=== PATIENT | female | born 1950 | race Caucasian/White ===

== ENCOUNTER 2024-08-10 12:43 | Inpatient (IN) | payer MEDICARE, OTHER ==
[2024-08-10] MEDS: Sodium Chloride 0.45% 500ML 500 ML IV ONE (13:23)
[2024-08-10 13:34] LABS: BASOPHIL % 0.1 % (0.1-1.2); Basophil (Absolute #) 0.02 x10^3/uL (0.01-0.08); Eosinophil (Absolute #) 0 x10^3/uL (0.04-0.36); Hematocrit 32.9 % (34.1-44.9); Hemoglobin 10.5 g/dL (11.2-15.7); IMMATURE GRAN # 0.12 x10^3u/L (0.001-0.031); IMMATURE GRAN % 0.7 % (0.001-0.429); Lymphocyte (Absolute #) 0.58 x10^3/uL (1.18-3.74); Lymphocytes % 3.5 % (19.3-51.7); Mean Cell Volume 89.2 fL (79.4-94.8); Mean Corpuscular Hemoglobin 28.5 pg (25.6-32.2); Mean Corpuscular Hgb Concent. 31.9 g/dL (32.2-35.5); Mean Platelet Volume 9.2 fL (9.4-12.3); Monocyte (Absolute #) 0.45 x10^3/uL (0.24-0.86); Monocytes % 2.7 % (4.7-12.5); Platelet Count 299 x10^3/uL (182-369); Red Blood Count 3.69 x10^6/uL (3.93-5.22); White Blood Count 16.6 x10^3/uL (3.98-10.04)
--- NOTE | 2024-08-10 13:44 | XRAY ---
Indication: Hypotension. Presyncope. Comparison: None Portable chest demonstrates minimal left midlung subsegmental atelectasis/scarring and tiny right mid lung calcified granuloma. Remaining heart and lungs normal. Bony thorax intact. No acute findings.
[2024-08-10 13:58] LABS: ALBUMIN 1.8 g/dL (3.5-5.0); ANION GAP 13.4 MEQ/L (5-15); BILIRUBIN,TOTAL 0.2 mg/dL (0.2-1.3); Creatinine 1 0.81 mg/dL (0.52-1.04); EST GLOMERULAR FILTRATION RATE 75.7 ML/MIN; MAGNESIUM 1.3 mg/dL (1.6-2.3); Potassium 4.4 mmol/L (3.5-5.1); Total Protein 4.3 g/dL (6.3-8.2)
--- NOTE | 2024-08-10 14:22 | ERPHSYRPT ---
- History of Present Illness Time Seen by Provider: 08/10/24 12:57 Source: patient, EMS, [facility] records Exam Limitations: no limitations Patient Subjective Stated Complaint: C/O near syncope today while resting in bed at [facility]. Triage Nursing Assessment: Patient arrived by ambulance. NO SOB. She is alert and oriented. Pitting edema present to BLE. RUE noted to have some non-pitting edema.Dressing noted to coccyx area; patient reports this is a known ulcer [facility] at the [facility]. Patient is pale. Physician History: 74-year-old female with history of diabetes mellitus,, colitis for which patient was initially seen here at [facility] and later on at [facility] and is scheduled to have colonoscopy and CT angiogram abdomen pelvis, questionable ulcerative colitis still having diarrhea 2-3 times a day currently at [facility] is brought in the ER patient was lying in the bed and started to feel lightheaded and near syncope with drop of blood pres sure in 70s, heart rate in low 50s which started to improve but still blood pressure is low. 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 Has bilateral 3+ pitting edema in both legs which is progressively worsening. Patient has almost 30 pounds weight loss in the last 3 months since her diarrhea and colitis symptoms started. No fever or chills reported. Also have a coccyx wound which seems to be healing and no discharge, currently under care of wound management. Patient is awake alert and oriented on presentation and not in any distress. Allergies/Adverse Reactions: sulfamethoxazole [From Bactrim] Allergy (Verified 08/10/24 12:47) trimethoprim [From Bactrim] Allergy (Verified 08/10/24 12:47) meperidine HCl [From Demerol] Adverse Reaction (Mild, Verified 08/10/24 12:47) Lightheadedness Home Medications: Fenofibrate [Lipofen] 145 mg PO DAILY 09/24/23 [History] Glimepiride 2 mg [Amaryl 2 MG] 2 mg PO DAILY 09/24/23 [History] Metformin HCl [Metformin ER Gastric] 1,000 mg PO BID 09/24/23 [History] Duloxetine HCl 30 mg [Cymbalta 30 MG Capsule] 1 tablet PO DAILY 05/23/24 [History] ALPRAZolam 0.25 MG [xanAX 0.25 MG] 0.25 mg PO Q4H PRN PRN 08/10/24 [History] Apixaban [Eliquis] 5 mg PO BID 08/10/24 [History] Ascorbic Acid 500 mg [Vitamin C 500 MG] 500 mg PO BID 08/10/24 [History] Bismuth Subsalicylate [Pepto-Bismol] 524 mg PO Q3H/PRN PRN 08/10/24 [History] Cholecalciferol (Vitamin D3) [Vitamin D] 1,000 unit PO DAILY 08/10/24 [History] Cholestyramine Light 4 gm [QUESTRAN Light 4 GM Packet] 4 gm PO DAILY 08/10/24 [History] Clotrimazole [Clotrimazole AF] See Rx Instructions .ROUTE .COMPLEX 08/10/24 [History] Dextrose [Glucose] 16 g PO CLARIFY 08/10/24 [History] Dicyclomine HCl 20 mg [Bentyl 20 mg] 20 mg PO QID 08/10/24 [History] Diphenoxylate HCl/Atropine [Lomotil 2.5-0.025 mg Tablet] 2 tab PO BID 08/10/24 [History] Furosemide 20 mg [Lasix 20 mg] 20 mg PO DAILY 08/10/24 [History] Insulin Lispro See Rx Instructions .ROUTE .COMPLEX 08/10/24 [History] L.acidoph,Paracasei, B.lactis [Probiotic] 1 cap PO DAILY 08/10/24 [History] Omeprazole 20 mg PO DAILY 08/10/24 [History] Ondansetron ODT 4 MG [Zofran Odt 4 mg] 4 mg PO Q4H PRN PRN 08/10/24 [History] Oxycodone HCl 5 mg PO Q4H PRN PRN 08/10/24 [History] Potassium Chloride Tab* [Klor Con] 10 meq PO DAILY 08/10/24 [History] Prednisone 20 mg [Deltasone 20 mg] 20 mg PO DAILY 08/10/24 [History] Psyllium Packet [Metamucil PACKET] 1 pack PO DAILY 08/10/24 [History] Hx Tetanus, Diphtheria Vaccination/Date Given: Yes Hx Influenza Vaccination/Date Given: No Hx Pneumococcal Vaccination/Date Given: No Immunizations Up to Date: Yes Travel Risk - International Travel Have you traveled outside of the country in past 3 weeks: No - Emerging Infectious Disease Are you exhibiting symptoms associated with any current EIDs: Yes Symptoms: Diarrhea Comment: Dx: Collitis. [facility] reports negative for C-diff - Review of Systems Constitutional: Fatigue, Weakness Eyes: No Symptoms Ears, Nose, & Throat: No Symptoms Respiratory: No Symptoms Cardiac: No Symptoms Abdominal/Gastrointestinal: Diarrhea Genitourinary Symptoms: No Symptoms Musculoskeletal: Arthralgias Skin: Skin Lesions Neurological: Dizziness Immunological/Allergic: No Symptoms - Past Medical History Pertinent Past Medical History: Yes Neurological History: No Pertinent History ENT History: No Pertinent History Cardiac History: High Cholesterol Respiratory History: No Pertinent History Endocrine Medical History: Diabetes Type II Musculoskeletal History: No Pertinent History GI Medical History: Colitis, Polyps History: No Pertinent History Psycho-Social History: Anxiety, Depression Female Reproductive Disorders: No Pertinent History Other Medical History: DVT to LUE, thrombophilia, anemia, hyperlipidemia, hypo- osmolality and hyponatremia - Past Surgical History Past Surgical History: Yes Neuro Surgical History: No Pertinent History Cardiac: No Pertinent History Respiratory: No Pertinent History Gastrointestinal: No Pertinent History Genitourinary: No Pertinent History Musculoskeletal: Orthopedic Surgery Female Surgical History: Hysterectomy Other Surgical History: knee surgery for shattered knee cap - Social History Smoking Status: Former smoker How long have you smoked: 40 Exposure to second hand smoke: No Drug Use: none - Social Determinants of Health Will the patient participate in the screening: Yes Do you worry about a steady place to live?: No Do you have any problems with any of the following?: No known problems In the past 12 months,have you had to go without utilities?: No Transportation Issues: No Has anyone in your support network made you feel unsafe?: No Have you or anyone in your house had to go without enough: No Comment: Currently resides at [facility] - Nursing Vital Signs Nursing Vital Signs: Initial Vital Signs Temperature 96.9 F 08/10/24 12:49 Pulse Rate 112 H 08/10/24 12:49 Respiratory Rate 12 08/10/24 12:49 Blood Pressure 95/68 08/10/24 12:49 O2 Sat by Pulse Oximetry 100 08/10/24 12:49 Pain Scale Pain Intensity 0 - Physical Exam General Appearance: no apparent distress, alert Eye Exam: PERRL/EOMI Ears, Nose, Throat Exam: normal ENT inspection Neck Exam: normal inspection, supple, full range of motion Respiratory Exam: normal breath sounds, lungs clear Cardiovascular Exam: normal heart sounds, tachycardia Gastrointestinal/Abdomen Exam: soft, normal bowel sounds, No tenderness Back Exam: normal inspection Extremity Exam: normal inspection, normal range of motion Neurologic Exam: alert, oriented x 3, cooperative Skin Exam: normal color SpO2 Interpretation: normal SpO2: 98 O2 Delivery: Room Air - Course EKG Interpreted by Me: RATE (105), Sinus Tach, NORMAL AXIS, NORMAL INTERVALS, Non-specific ST Changes Ordered Tests: Active Orders 24 hr Category Date Time Status EKG-ER Only STAT Care 08/10/24 12:57 Active IV Insertion STAT Care 08/10/24 12:57 Active CHEST 1 VIEW (PORTABLE) Stat Exams 08/10/24 12:57 Completed CTA ABD/PEL W AND/OR W/O CONTR [CT] Stat Exams 08/10/24 14:27 Completed BLOOD CULTURE Stat Lab 08/10/24 13:28 Received CBC W DIFF Stat Lab 08/10/24 13:20 Completed CMP Stat Lab 08/10/24 13:20 Completed CULTURE,URINE Stat Lab 08/10/24 14:24 Received Lactic Acid Stat Lab 08/10/24 13:20 Completed Lactic Acid Stat Lab 08/10/24 15:28 Completed MAGNESIUM Stat Lab 08/10/24 13:20 Completed NT PRO BNPII Stat Lab 08/10/24 13:20 Completed TROPONIN Q4H Lab 08/10/24 13:20 Completed TROPONIN Q4H Lab 08/10/24 17:14 Received TROPONIN Q4H Lab 08/10/24 21:00 Ordered UA W/RFX UR CULTURE Stat Lab 08/10/24 14:24 Completed Transfer Order Routine Transfer 08/10/24 Ordered Medication Summary Discontinued Medications Generic Name Dose Route Start Last Admin Trade Name Freq PRN Reason Stop Dose Admin Sodium Chloride 500 mls @ 500 mls/hr 08/10/24 12:58 08/10/24 13:23 Sodium Chloride 0.45% 500ml IV 08/10/24 13:57 Not Given .Q1H ONE Sodium Chloride 1,000 mls @ 999 mls/hr 08/10/24 14:10 08/10/24 17:12 Sodium Chloride 0.9% 1000 Ml IV 08/10/24 15:10 Not Given .Q1H1M STA Piperacillin Sod/Tazobactam 100 mls @ 200 mls/hr 08/10/24 14:12 08/10/24 15:38 Sod 3.375 gm/ Sodium Chloride IV 08/10/24 14:41 200 mls/hr STAT ONE Administration Sodium Chloride 1,000 mls @ 999 mls/hr 08/10/24 14:12 08/10/24 16:44 Sodium Chloride 0.9% 1000 Ml IV 08/10/24 15:12 Infused .Q1H1M STA Infusion Sodium Chloride Confirm 08/10/24 15:36 Sodium Chloride 0.9% 1000 Ml Administered 08/10/24 15:37 Dose 1,000 mls @ ud .ROUTE .STK-MED ONE Sodium Chloride Confirm 08/10/24 15:37 Sodium Chloride 100ml Mini-Bag Plus Administered 08/10/24 15:38 Dose 100 mls @ ud IV .STK-MED ONE Lidocaine HCl Confirm 08/10/24 15:06 Lidocaine - Mpf 2% 5 Ml Vial Administered 08/10/24 15:07 Dose 5 ml .ROUTE .STK-MED ONE Ondansetron HCl 4 mg 08/10/24 15:23 08/10/24 15:39 Ondansetron Hcl 4 Mg/2 Ml Vial IV 08/10/24 15:24 4 mg STAT ONE Administration Ondansetron HCl Confirm 08/10/24 15:35 Ondansetron Hcl 4 Mg/2 Ml Vial Administered 08/10/24 15:36 Dose 4 mg .ROUTE .STK-MED ONE Piperacillin Sod/Tazobactam Sod Confirm 08/10/24 15:36 Piperacillin/Tazobactam Sodium 3.375 Gm Vial Administered 08/10/24 15:37 Dose 3.375 gm IV .STK-MED ONE Lab/Rad Data: Laboratory Result Diagrams 08/10/24 13:20 08/10/24 13:20 Laboratory Results 01/30/25 01/30/25 01/30/25 Range/Units 15:28 14:24 13:20 WBC (3.98-10.04) x10^3/uL RBC (3.93-5.22) x10^6/uL Hgb (11.2-15.7) g/dL Hct (34.1-44.9) % MCV (79.4-94.8) fL MCH (25.6-32.2) pg MCHC (32.2-35.5) g/dL RDW (11.7-14.4) % Plt Count (182-369) x10^3/uL MPV (9.4-12.3) fL Gran % (34.0-71.1) % Immature Gran % (Auto) (0.001-0.429) % Nucleat RBC Rel Count (0.00-0.2) % Eos # (Auto) (0.04-0.36) x10^3/uL Immature Gran # (Auto) (0.001-0.031) x10^3u/L Absolute Lymphs (auto) (1.18-3.74) x10^3/uL Absolute Monos (auto) (0.24-0.86) x10^3/uL Absolute Nucleated RBC (0.00-0.012) x10^3u/L Lymphocytes % (19.3-51.7) % Monocytes % (4.7-12.5) % Eosinophils % (0.7-5.8) % Basophils % (0.1-1.2) % Absolute Granulocytes (1.56-6.13) x10^3/uL Basophils # (0.01-0.08) x10^3/uL Sodium (135-145) mmol/L Potassium (3.5-5.1) mmol/L Chloride (98-107) mmol/L Carbon Dioxide (22-30) mmol/L Anion Gap (5-15) MEQ/L BUN (7-17) mg/dL Creatinine (0.52-1.04) mg/dL Estimated GFR ML/MIN Glucose (74-106) mg/dL Lactic Acid 2.6 H (0.4-2.0) Calcium (8.4-10.2) mg/dL Magnesium (1.6-2.3) mg/dL Total Bilirubin (0.2-1.3) mg/dL AST (14-36) U/L ALT (0-35) U/L Alkaline Phosphatase (38-126) U/L Troponin I < 0.012 (0.000-0.033) ng/mL NT-Pro-B Natriuret Pep (<300) pg/mL Serum Total Protein (6.3-8.2) g/dL Albumin (3.5-5.0) g/dL Urine Color Yellow (Yellow) Urine Appearance Cloudy A (Clear) Urine pH 5.0 (4.6-8.0) Ur Specific [place] 1.020 (1.005-1.030) Urine Protein Trace A (Negative) Urine Glucose (UA) Negative (Negative) mg/dL Urine Ketones Trace A (Negative) Urine Blood Negative (Negative) Urine Nitrite Negative (Negative) Urine Bilirubin Negative (Negative) Urine Urobilinogen 0.2 (0.2) mg/dL Ur Leukocyte Esterase Trace A (Negative) U Hyaline Cast (Auto) 11-20 (0-2) /LPF Urine Microscopic RBC 0-2 (0-5) /HPF Urine Microscopic WBC 3-5 (0-5) /HPF Ur Epithelial Cells Rare (None Seen) /HPF Urine Bacteria Many A (None Seen) /HPF Urine Culture Reflexed YES (NO) Slides for Path Review 08/10/24 08/10/24 08/10/24 Range/Units 13:20 13:20 13:20 WBC 16.6 H (3.98-10.04) x10^3/uL RBC 3.69 L (3.93-5.22) x10^6/uL Hgb 10.5 L (11.2-15.7) g/dL Hct 32.9 L (34.1-44.9) % MCV 89.2 (79.4-94.8) fL MCH 28.5 (25.6-32.2) pg MCHC 31.9 L (32.2-35.5) g/dL RDW 18.0 H (11.7-14.4) % Plt Count 299 (182-369) x10^3/uL MPV 9.2 L (9.4-12.3) fL Gran % 93.0 H (34.0-71.1) % Immature Gran % (Auto) 0.7 H (0.001-0.429) % Nucleat RBC Rel Count 0.0 (0.00-0.2) % Eos # (Auto) 0 L (0.04-0.36) x10^3/uL Immature Gran # (Auto) 0.12 H (0.001-0.031) x10^3u/L Absolute Lymphs (auto) 0.58 L (1.18-3.74) x10^3/uL Absolute Monos (auto) 0.45 (0.24-0.86) x10^3/uL Absolute Nucleated RBC 0.00 (0.00-0.012) x10^3u/L Lymphocytes % 3.5 L (19.3-51.7) % Monocytes % 2.7 L (4.7-12.5) % Eosinophils % 0.0 L (0.7-5.8) % Basophils % 0.1 (0.1-1.2) % Absolute Granulocytes 15.40 H (1.56-6.13) x10^3/uL Basophils # 0.02 (0.01-0.08) x10^3/uL Sodium 128 L (135-145) mmol/L Potassium 4.4 (3.5-5.1) mmol/L Chloride 99 (98-107) mmol/L Carbon Dioxide 20 L (22-30) mmol/L Anion Gap 13.4 (5-15) MEQ/L BUN 37 H (7-17) mg/dL Creatinine 0.81 (0.52-1.04) mg/dL Estimated GFR 75.7 ML/MIN Glucose 281 H (74-106) mg/dL Lactic Acid 5.5 H (0.4-2.0) Calcium 7.0 L (8.4-10.2) mg/dL Magnesium 1.3 L (1.6-2.3) mg/dL Total Bilirubin 0.20 (0.2-1.3) mg/dL AST 22 (14-36) U/L ALT 21 (0-35) U/L Alkaline Phosphatase 169 H (38-126) U/L Troponin I (0.000-0.033) ng/mL NT-Pro-B Natriuret Pep 672 (<300) pg/mL Serum Total Protein 4.3 L (6.3-8.2) g/dL Albumin 1.8 L (3.5-5.0) g/dL Urine Color (Yellow) Urine Appearance (Clear) Urine pH (4.6-8.0) Ur Specific [place] (1.005-1.030) Urine Protein (Negative) Urine Glucose (UA) (Negative) mg/dL Urine Ketones (Negative) Urine Blood (Negative) Urine Nitrite (Negative) Urine Bilirubin (Negative) Urine Urobilinogen (0.2) mg/dL Ur Leukocyte Esterase (Negative) U Hyaline Cast (Auto) (0-2) /LPF Urine Microscopic RBC (0-5) /HPF Urine Microscopic WBC (0-5) /HPF Ur Epithelial Cells (None Seen) /HPF Urine Bacteria (None Seen) /HPF Urine Culture Reflexed (NO) Slides for Path Review YES - Progress Progress: improved Progress Note: 08/10/24 17:47 74[facility] with multiple medical problems is evaluated in the ER for lightheadedness with near syncopal episode prior to arrival causing hypotension, bradycardia and hypoxia. Patient tachycardia and hypoxia improved prior to arrival, blood pressure on the softer side on presentation. She is given fluids with improvement in blood pressure and low 100s. Patient has diffuse edema bilaterally lower extremities. Broad workup is obtained showing white count of 16, lactate of 5.5 which improved after fluids to 2.6, sodium of 128 and low albumin with a normal tr oponin and BNP only in 600s. I believe low albumin is the reason for her edema in the dependent area. Patient has a wound on the coccyx area which seems to be well-healing and do not see any sloughing or signs of cellulitis around. No definitive UTI. Chest x-ray is negative for any acute cardiopulmonary findings. Patient has his outpatient order for CTA angiogram abdomen pelvis from her gastroenterology [place] as patient has this diarrhea going on for quite some time. I have obtained CTA which showed no definite obstruction/stenosis but did have diffuse sigmoid colitis which probably is the source of her sepsis, patient is given a dose of Zosyn as well. I have shared the results of workup with patient and family and recommended admission and they would prefer to stay here if we can. I have discussed with Dr. Sweeney who has reviewed her chart and patient is being admitted. Discussed with : David Will see patient in: hospital (observation) Counseled pt/family regarding: lab results, diagnosis, rad results Medical Desision Making - Independent Historian Additional History obtained from: Family, Relative/friend, Penitentiary nurse, Radiologic Technologist/EMT - External Record(s) Reviewed Records reviewed as a part of evaluation & management: Inpatient, Discharge Summary, [facility] - Discussion of managment Care discussed with:: hospitalist Reviewed:: Test results Agreed on:: Treatment plan, place in obs Will see patient: in hospital - Diagnostic Testing Diagnostic test were ordered, analyzed, and reviewed by me: Yes Radiological Interpretation: Reviewed by me - Risk of complications The pt has a mod risk of morbidity or mortality based on: Need for prescription drug management The pt has a high risk of morbidity or mortality based on: Decision regarding hospitilization or escalation of hosp level of care - Departure Departure Disposition: Observation Clinical Impression: Colitis, Hypomagnesemia, Sepsis, Hyponatremia Condition: Stable Critical Care Time: No Referrals: KAITLYN MCKEON OF [Primary Care Provider] - Follow up/PCP as directed
[2024-08-10 14:36] LABS: Slide Review 1 YES
[2024-08-10] MEDS ORDERED: Xylocaine-Mpf 2% 5 Ml Vial ONE (15:06)
[2024-08-10] MEDS ORDERED: Zofran 4 MG/2 ML VIAL ONE (15:35)
[2024-08-10] MEDS ORDERED: PIPERACILLIN/TAZOBACTAM IV ONE (15:36)
[2024-08-10] MEDS ORDERED: Sodium Chloride 0.9% 1000 ML 1,000 ML ONE (15:36)
[2024-08-10] MEDS ORDERED: Sodium Chloride 100ML MINI-BAG PLUS 100 ML IV ONE (15:37)
[2024-08-10] MEDS: PIPERACILLIN/TAZOBACTAM 3.375 GM in Sodium Chloride 100ML MINI-BAG PLUS 100 ML IV ONE (15:38)
[2024-08-10] MEDS: Zofran 4 MG/2 ML VIAL IV ONE (15:39)
[2024-08-10] MEDS: Sodium Chloride 0.9% 1000 ML 1,000 ML IV STA ×2 (15:39→17:12)
[2024-08-10 16:31] LABS: Appearance Cloudy (Clear); Bacteria Many /HPF (None Seen); Bilirubin Negative (Negative); Blood Negative (Negative); Epithelial Cells Rare /HPF (None Seen); Glucose, Urine Negative (Negative); Ketones Trace (Negative); Leukocyte Esterase Trace (Negative); Nitrite Negative (Negative); Protein,Urine Dip Trace (Negative); Urobilinogen 0.2 mg/dL (0.2)
[2024-08-10 16:32] LABS: RBC 0-2 /HPF (0-5)
--- NOTE | 2024-08-10 17:11 | XRAY ---
Indication: Colitis. Conventional contrast enhanced CTA abdomen/pelvis performed using 80 cc Isovue 370 contrast. 2-D sagittal and coronal reformatted images obtained. Additional 3-D reformatted images obtained using separate workstation. Comparison: None Abdominal aorta demonstrates minimal distal arteriosclerotic calcifications. Negative for aneurysm/dissection. Normal CTA appearance to celiac, superior mesenteric, and inferior mesenteric arteries. A single widely patent renal artery supplies each kidney. Iliac vessels demonstrates minimal arteriosclerotic calcifications in the right common iliac and both internal iliac arteries. No critical stenosis, obstruction, or AV malformation. Lung bases are clear with incidental small right lower lobe calcific granuloma. Heart not enlarged. Noncontrasted stomach and bowel loops appear nonobstructed with normal appendix. Mild fecal debris predominantly in the ascending and transverse colon. Diffuse scattered sigmoid diverticulosis with diffuse circumferential wall thickening and mild pericolonic stranding favoring diverticulitis. No free fluid/air. Incidental diffuse fatty liver, 2 cm right upper renal cyst, and a few splenic calcified granulomas. Remaining liver, gallbladder, pancreas, spleen, adrenal glands, kidneys, ureters, and bladder are unremarkable. No pathologic retroperitoneal lymphadenopathy. Osseous structures intact with osteopenia and minimal/mild degenerative changes throughout thoracolumbar spine. Incidental small superior L4 Schmorl node. Impression: 1. Minimally arteriosclerotic distal abdominal aorta and lesser degree iliac arteries as detailed. Remaining CTA abdomen/pelvis with contrast exam is negative. 2. Incidental diffuse noncomplicating sigmoid diverticulitis, fatty liver, right renal cyst, chronic bony findings, and old granulomatous disease.
[2024-08-10] MEDS: Magnesium 1 Gm / 100 Ml D5W*** 100 ML IV SCH (17:50)
[2024-08-10] MEDS ORDERED: Pepto-Bismol PO PRN (19:27)
[2024-08-10] MEDS ORDERED: Dex4 Glucose 4 GM TABLET PO PRN (19:30)
--- NOTE | 2024-08-10 19:50 | PCM.HP ---
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 The patient has had bilateral 3+ pitting edema in both legs which is progressively worsening. Patient has almost 30 pounds weight loss in the last 3 months since her diarrhea and colitis symptoms started. She denied fever or chills. The patient also has a coccyx wound which seems to be healing and with no discharge, currently under care of wound management at her facility. In the ED, the patient received IV fluids with an improvement in her BP. Workup demonstrated leukocytosis, hypmagnesemia, a lactic acidosis, and colitis on CT scan. IV antibiotics were administered. She states that her diarrhea is overall improved over the past several weeks, but is persistent. The plan is for repeat colonoscopy with Dr. Virginia Goddard next week. The recommended CTA abdomen was already done in the ED. - Review of Systems Constitutional: Fatigue Eyes: No Symptoms Ears, Nose, & Throat: No Symptoms Respiratory: No Symptoms Cardiac: Edema Abdominal/Gastrointestinal: Abdominal Pain, Diarrhea Genitourinary Symptoms: No Symptoms Musculoskeletal: No Symptoms Skin: Decubiti Neurological: Dizziness Psychological: No Symptoms Endocrine: No Symptoms Hematologic/Lymphatic: No Symptoms Immunological/Allergic: No Symptoms Medications & Allergies Home Medications: Home Medication List Fenofibrate [Lipofen] 145 mg PO DAILY 09/24/23 [History Confirmed 08/10/24] Glimepiride 2 mg [Amaryl 2 MG] 2 mg PO DAILY 09/24/23 [History Confirmed 08/10/24] Metformin HCl [Metformin ER Gastric] 1,000 mg PO BID 09/24/23 [History Confirmed 08/10/24] Duloxetine HCl 30 mg [Cymbalta 30 MG Capsule] 1 tablet PO DAILY 05/23/24 [History Confirmed 08/10/24] Ferrous Sulfate 325 mg [Feosol 325 mg] 325 mg PO DAILY tablet 06/02/24 [Rx Confirmed 08/10/24] Acetaminophen 325 mg [Tylenol 325 mg] 650 mg PO Q4H PRN PRN tablet 06/16/24 [Rx Confirmed 08/10/24] ALPRAZolam 0.25 MG [xanAX 0.25 MG] 0.25 mg PO Q4H PRN PRN 08/10/24 [History Confirmed 08/10/24] Apixaban [Eliquis] 5 mg PO BID 08/10/24 [History Confirmed 08/10/24] Ascorbic Acid 500 mg [Vitamin C 500 MG] 500 mg PO BID 08/10/24 [History Co nfirmed 08/10/24] Bismuth Subsalicylate [Pepto-Bismol] 524 mg PO Q3H/PRN PRN 08/10/24 [History Confirmed 08/10/24] Cholecalciferol (Vitamin D3) [Vitamin D] 1,000 unit PO DAILY 08/10/24 [His tory Confirmed 08/10/24] Cholestyramine Light 4 gm [QUESTRAN Light 4 GM Packet] 4 gm PO DAILY 08/10/24 [History Confirmed 08/10/24] Clotrimazole [Clotrimazole AF] See Rx Instructions .ROUTE .COMPLEX 08/10/24 [History Confirmed 08/10/24] Dextrose [Glucose] 16 g PO CLARIFY 08/10/24 [History Confirmed 08/10/24] Dicyclomine HCl 20 mg [Bentyl 20 mg] 20 mg PO QID 08/10/24 [History Confirmed 08/10/24] Diphenoxylate HCl/Atropine [Lomotil 2.5-0.025 mg Tablet] 2 tab PO BID 08/10/24 [History Confirmed 08/10/24] Furosemide 20 mg [Lasix 20 mg] 20 mg PO DAILY 08/10/24 [History Confirmed 08/10/24] Insulin Lispro See Rx Instructions .ROUTE .COMPLEX 08/10/24 [History Confirmed 08/10/24] L.acidoph,Paracasei, B.lactis [Probiotic] 1 cap PO DAILY 08/10/24 [History Confirmed 08/10/24] Omeprazole 20 mg PO DAILY 08/10/24 [History Confirmed 08/10/24] Ondansetron ODT 4 MG [Zofran Odt 4 mg] 4 mg PO Q4H PRN PRN 08/10/24 [History Confirmed 08/10/24] Oxycodone HCl 5 mg PO Q4H PRN PRN 08/10/24 [History Confirmed 08/10/24] Potassium Chloride Tab* [Klor Con] 10 meq PO DAILY 08/10/24 [History Confirmed 08/10/24] Prednisone 20 mg [Deltasone 20 mg] 20 mg PO DAILY 08/10/24 [History Confir med 08/10/24] Psyllium Packet [Metamucil PACKET] 1 pack PO DAILY 08/10/24 [History Confirmed 08/10/24] Allergies/Adverse Reactions: Allergies Allergy/AdvReac Type Severity Reaction Status Date / Time sulfamethoxazole Allergy Verified 08/10/24 12:47 [From Bactrim] trimethoprim [From Bactrim] Allergy Verified 08/10/24 12:47 meperidine HCl [From Demerol] AdvReac Mild Lightheaded Verified 08/10/24 12:47 ness - Past Medical History Past Medical History: Yes Neurological History: No Pertinent History ENT History: No Pertinent History Cardiac History: High Cholesterol Respiratory History: No Pertinent History Endocrine Medical History: Diabetes Type II Musculoskelatal History: No Pertinent History GI Medical History: Colitis, Polyps History: No Pertinent History Pyscho-Social History: Anxiety, Depression Reproductive Disorders: No Pertinent History Comment: DVT to LUE, thrombophilia, anemia, hyperlipidemia, hypo-osmolality and hyponatremia - Past Surgical History Past Surgical History: Yes Neuro Surgical History: No Pertinent History Cardiac History: No Pertinent History Respiratory Surgery: No Pertinent History GI Surgical History: No Pertinent History Genitourinary Surgical Hx: No Pertinent History Musculskeletal Surgical Hx: Orthopedic Surgery Female Surgical History: Hysterectomy Other Surgical History: knee surgery for shattered knee cap Significant Family History: no pertinent family hx Family History: no hereditary gastrointestinal disease noted - Social History Smoking Status: Former smoker How long have you smoked: 40 Exposure to second hand smoke: No Alcohol: Rarely Drug Use: none - Social Determinants of Health Will the patient participate in the screening: Yes Do you worry about a steady place to live?: No Do you have any problems with any of the following?: No known problems In the past 12 months,have you had to go without utilities?: No Have you or anyone in your house had to go without enough: No Transportation Issues: No Has anyone in your support network made you feel unsafe?: No Does the patient want assistance with any of the above?: No Comment: Currently resides at [facility] - Physical Exam Vital Signs: Vital Signs - 24 hr Temp Pulse Resp BP BP BP Pulse Ox 08/10/24 19:37 97.5 F 100 H 19 87/50 87/50 98 08/10/24 18:00 90 17 104/54 98 08/10/24 17:52 98 08/10/24 17:45 99 H 15 114/44 97 08/10/24 17:21 88 25 H 104/54 96 08/10/24 17:20 90 18 96 08/10/24 17:10 87 26 H 94 L 08/10/24 17:03 89 16 89 L 08/10/24 16:45 88 16 113/55 97 08/10/24 16:30 88 16 108/66 08/10/24 16:18 104 H 18 102/54 97 08/10/24 16:17 95 08/10/24 15:36 101 H 18 118/59 97 08/10/24 15:30 100 H 28 H 97 08/10/24 15:20 97 H 29 H 98 08/10/24 15:10 94 H 18 98 08/10/24 15:02 96 H 18 100 08/10/24 14:45 97 H 19 103/74 100 08/10/24 14:31 18 97/75 98 08/10/24 14:30 102 H 16 87/61 98 08/10/24 14:15 112 H 24 105/78 99 08/10/24 13:30 109 H 24 110/90 98 08/10/24 13:01 102 H 14 109/77 99 08/10/24 12:54 104 H 19 84/64 97 08/10/24 12:49 96.9 F 112 H 12 95/68 100 General Appearance: no apparent distress, alert Neurologic Exam: alert, oriented x 3, cooperative, 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, normal mood/affect, nml cerebellar function Eye Exam: PERRL/EOMI, eyes nml inspection Ears, Nose, Throat Exam: normal ENT inspection Neck Exam: normal inspection, non-tender, supple, full range of motion Respiratory Exam: normal breath sounds, lungs clear Cardiovascular Exam: regular rate/rhythm, normal heart sounds, edema Gastrointestinal/Abdomen Exam: soft, normal bowel sounds, tenderness (bilateral upper quadrant tenderness to palpation without peritoneal) Back Exam: normal range of motion Extremity Exam: normal range of motion, pedal edema, swelling (bilateral pitting edema (symmetric) to the mid carty, with edema bilaterally above the knees) Results - Labs Lab/Micro Results: Lab Results-Last 24 Hours 08/10/24 08/10/24 08/10/24 Range/Units 13:20 13:20 13:20 WBC 16.6 H (3.98-10.04) x10^3/uL RBC 3.69 L (3.93-5.22) x10^6/uL Hgb 10.5 L (11.2-15.7) g/dL Hct 32.9 L (34.1-44.9) % MCV 89.2 (79.4-94.8) fL MCH 28.5 (25.6-32.2) pg MCHC 31.9 L (32.2-35.5) g/dL RDW 18.0 H (11.7-14.4) % Plt Count 299 (182-369) x10^3/uL MPV 9.2 L (9.4-12.3) fL Gran % 93.0 H (34.0-71.1) % Immature Gran % (Auto) 0.7 H (0.001-0.429) % Nucleat RBC Rel Count 0.0 (0.00-0.2) % Eos # (Auto) 0 L (0.04-0.36) x10^3/uL Immature Gran # (Auto) 0.12 H (0.001-0.031) x10^3u/L Absolute Lymphs (auto) 0.58 L (1.18-3.74) x10^3/uL Absolute Monos (auto) 0.45 (0.24-0.86) x10^3/uL Absolute Nucleated RBC 0.00 (0.00-0.012) x10^3u/L Lymphocytes % 3.5 L (19.3-51.7) % Monocytes % 2.7 L (4.7-12.5) % Eosinophils % 0.0 L (0.7-5.8) % Basophils % 0.1 (0.1-1.2) % Absolute Granulocytes 15.40 H (1.56-6.13) x10^3/uL Basophils # 0.02 (0.01-0.08) x10^3/uL Sodium 128 L (135-145) mmol/L Potassium 4.4 (3.5-5.1) mmol/L Chloride 99 (98-107) mmol/L Carbon Dioxide 20 L (22-30) mmol/L Anion Gap 13.4 (5-15) MEQ/L BUN 37 H (7-17) mg/dL Creatinine 0.81 (0.52-1.04) mg/dL Estimated GFR 75.7 ML/MIN Glucose 281 H (74-106) mg/dL Lactic Acid 5.5 H (0.4-2.0) Calcium 7.0 L (8.4-10.2) mg/dL Magnesium 1.3 L (1.6-2.3) mg/dL Total Bilirubin 0.20 (0.2-1.3) mg/dL AST 22 (14-36) U/L ALT 21 (0-35) U/L Alkaline Phosphatase 169 H (38-126) U/L Troponin I (0.000-0.033) ng/mL NT-Pro-B Natriuret Pep 672 (<300) pg/mL Serum Total Protein 4.3 L (6.3-8.2) g/dL Albumin 1.8 L (3.5-5.0) g/dL Urine Color (Yellow) Urine Appearance (Clear) Urine pH (4.6-8.0) Ur Specific Sophia (1.005-1.030) Urine Protein (Negative) Urine Glucose (UA) (Negative) mg/dL Urine Ketones (Negative) Urine Blood (Negative) Urine Nitrite (Negative) Urine Bilirubin (Negative) Urine Urobilinogen (0.2) mg/dL Ur Leukocyte Esterase (Negative) U Hyaline Cast (Auto) (0-2) /LPF Urine Microscopic RBC (0-5) /HPF Urine Microscopic WBC (0-5) /HPF Ur Epithelial Cells (None Seen) /HPF Urine Bacteria (None Seen) /HPF Urine Culture Reflexed (NO) Slides for Path Review YES 08/10/24 08/10/24 08/10/24 Range/Units 13:20 14:24 15:28 WBC (3.98-10.04) x10^3/uL RBC (3.93-5.22) x10^6/uL Hgb (11.2-15.7) g/dL Hct (34.1-44.9) % MCV (79.4-94.8) fL MCH (25.6-32.2) pg MCHC (32.2-35.5) g/dL RDW (11.7-14.4) % Plt Count (182-369) x10^3/uL MPV (9.4-12.3) fL Gran % (34.0-71.1) % Immature Gran % (Auto) (0.001-0.429) % Nucleat RBC Rel Count (0.00-0.2) % Eos # (Auto) (0.04-0.36) x10^3/uL Immature Gran # (Auto) (0.001-0.031) x10^3u/L Absolute Lymphs (auto) (1.18-3.74) x10^3/uL Absolute Monos (auto) (0.24-0.86) x10^3/uL Absolute Nucleated RBC (0.00-0.012) x10^3u/L Lymphocytes % (19.3-51.7) % Monocytes % (4.7-12.5) % Eosinophils % (0.7-5.8) % Basophils % (0.1-1.2) % Absolute Granulocytes (1.56-6.13) x10^3/uL Basophils # (0.01-0.08) x10^3/uL Sodium (135-145) mmol/L Potassium (3.5-5.1) mmol/L Chloride (98-107) mmol/L Carbon Dioxide (22-30) mmol/L Anion Gap (5-15) MEQ/L BUN (7-17) mg/dL Creatinine (0.52-1.04) mg/dL Estimated GFR ML/MIN Glucose (74-106) mg/dL Lactic Acid 2.6 H (0.4-2.0) Calcium (8.4-10.2) mg/dL Magnesium (1.6-2.3) mg/dL Total Bilirubin (0.2-1.3) mg/dL AST (14-36) U/L ALT (0-35) U/L Alkaline Phosphatase (38-126) U/L Troponin I < 0.012 (0.000-0.033) ng/mL NT-Pro-B Natriuret Pep (<300) pg/mL Serum Total Protein (6.3-8.2) g/dL Albumin (3.5-5.0) g/dL Urine Color Yellow (Yellow) Urine Appearance Cloudy A (Clear) Urine pH 5.0 (4.6-8.0) Ur Specific Sophia 1.020 (1.005-1.030) Urine Protein Trace A (Negative) Urine Glucose (UA) Negative (Negative) mg/dL Urine Ketones Trace A (Negative) Urine Blood Negative (Negative) Urine Nitrite Negative (Negative) Urine Bilirubin Negative (Negative) Urine Urobilinogen 0.2 (0.2) mg/dL Ur Leukocyte Esterase Trace A (Negative) U Hyaline Cast (Auto) 11-20 (0-2) /LPF Urine Microscopic RBC 0-2 (0-5) /HPF Urine Microscopic WBC 3-5 (0-5) /HPF Ur Epithelial Cells Rare (None Seen) /HPF Urine Bacteria Many A (None Seen) /HPF Urine Culture Reflexed YES (NO) Slides for Path Review 08/10/24 Range/Units 17:14 WBC (3.98-10.04) x10^3/uL RBC (3.93-5.22) x10^6/uL Hgb (11.2-15.7) g/dL Hct (34.1-44.9) % MCV (79.4-94.8) fL MCH (25.6-32.2) pg MCHC (32.2-35.5) g/dL RDW (11.7-14.4) % Plt Count (182-369) x10^3/uL MPV (9.4-12.3) fL Gran % (34.0-71.1) % Immature Gran % (Auto) (0.001-0.429) % Nucleat RBC Rel Count (0.00-0.2) % Eos # (Auto) (0.04-0.36) x10^3/uL Immature Gran # (Auto) (0.001-0.031) x10^3u/L Absolute Lymphs (auto) (1.18-3.74) x10^3/uL Absolute Monos (auto) (0.24-0.86) x10^3/uL Absolute Nucleated RBC (0.00-0.012) x10^3u/L Lymphocytes % (19.3-51.7) % Monocytes % (4.7-12.5) % Eosinophils % (0.7-5.8) % Basophils % (0.1-1.2) % Absolute Granulocytes (1.56-6.13) x10^3/uL Basophils # (0.01-0.08) x10^3/uL Sodium (135-145) mmol/L Potassium (3.5-5.1) mmol/L Chloride (98-107) mmol/L Carbon Dioxide (22-30) mmol/L Anion Gap (5-15) MEQ/L BUN (7-17) mg/dL Creatinine (0.52-1.04) mg/dL Estimated GFR ML/MIN Glucose (74-106) mg/dL Lactic Acid (0.4-2.0) Calcium (8.4-10.2) mg/dL Magnesium (1.6-2.3) mg/dL Total Bilirubin (0.2-1.3) mg/dL AST (14-36) U/L ALT (0-35) U/L Alkaline Phosphatase (38-126) U/L Troponin I < 0.012 (0.000-0.033) ng/mL NT-Pro-B Natriuret Pep (<300) pg/mL Serum Total Protein (6.3-8.2) g/dL Albumin (3.5-5.0) g/dL Urine Color (Yellow) Urine Appearance (Clear) Urine pH (4.6-8.0) Ur Specific Sophia (1.005-1.030) Urine Protein (Negative) Urine Glucose (UA) (Negative) mg/dL Urine Ketones (Negative) Urine Blood (Negative) Urine Nitrite (Negative) Urine Bilirubin (Negative) Urine Urobilinogen (0.2) mg/dL Ur Leukocyte Esterase (Negative) U Hyaline Cast (Auto) (0-2) /LPF Urine Microscopic RBC (0-5) /HPF Urine Microscopic WBC (0-5) /HPF Ur Epithelial Cells (None Seen) /HPF Urine Bacteria (None Seen) /HPF Urine Culture Reflexed (NO) Slides for Path Review - Radiology Impressions Radiology Exams & Impressions: Radiology Procedures Category Date Time Status CHEST 1 VIEW (PORTABLE) Stat Exams 08/10/24 12:57 Completed CTA ABD/PEL W AND/OR W/O CONTR [CT] Stat Exams 08/10/24 14:27 Completed Assessment/Plan (1) Colitis Current Visit: Yes Status: Acute Assessment & Plan: Unclear etiology but being worked up by Dr. Hess, with planned repeat colonoscopy next week. Colitis evident on CT scan. Unclear if this is infectious, but given sepsis presentation on diagnosis and abdominal pain on exam, will treat with antibiotics and monitor abdominal exam and WBC count. Continue probiotics. Chronic diarrhea is overall improved. Hemoglobin (with the background of recent GI bleeding) is actually improved. Code(s): K52.9 - NONINFECTIVE GASTROENTERITIS AND COLITIS, UNSPECIFIED (2) Sepsis Current Visit: Yes Status: Acute Assessment & Plan: No evidence of pneumonia or UTI. As above, treat colitis and monitor clinical course. (3) Dizziness Current Visit: Yes Status: Acute Assessment & Plan: HR and BP improved. Will check AM orthostatics and mobilize with PT. Denies dizziness after IV fluids administered in ED. Avoiding additional IV fluids due to concerns about third spacing (leg edema). Code(s): R42 - DIZZINESS AND GIDDINESS (4) Hypomagnesemia Current Visit: Yes Status: Acute Assessment & Plan: Repleted in ED. Will recheck in AM. Code(s): E83.42 - HYPOMAGNESEMIA (5) Anemia Current Visit: No Status: Acute Assessment & Plan: As above, hemoglobin improved. No reported blood in stool currently. Code(s): D64.9 - ANEMIA, UNSPECIFIED (6) Type 2 diabetes mellitus Current Visit: No Status: Chronic Assessment & Plan: Monitor sugars on ISS. Hold metformin due to acidosis. (7) Metabolic acidosis Current Visit: No Status: Resolved Assessment & Plan: Lactate improved on repeat check. Holding metformin. Received IV fluids. Code(s): E87.20 - ACIDOSIS, UNSPECIFIED Telemedicine Encounter - Telemedicine Encounter Telemedicine Encounter: "The entirety of this encounter was performed via Telemedicine" This visit was performed using real-time audio and video connection between my location and thepatients locationwith the assistance of a surrogateat the patients location. Written or verbal consent was obtained from the patient/guar hakeem to perform this [facility]. Any patient questions regarding the telemedicine interaction were answered.
[2024-08-10] MEDS ORDERED: ELIQUIS 2.5 MG TABLET ONE (21:41)
[2024-08-10] MEDS: BENTYL 20 MG PO SCH (21:45)
[2024-08-10] MEDS: NON-FORMULARY ITEM (Apixaban [Eliquis] 5 MG Tablet) PO SCH (21:46)
[2024-08-10] MEDS: Vitamin C 500 MG PO SCH (21:46)
[2024-08-10] MEDS: NON-FORMULARY ITEM (Metformin Hcl [Metformin Er Gastric] 1,000 MG Tabergr24h) PO SCH (21:47)
[2024-08-10] MEDS: HUMALOG SQ PRN (22:42)
[2024-08-11] MEDS ORDERED: PIPERACILLIN/TAZOBACTAM IV ONE ×2 (00:38→05:42)
[2024-08-11] MEDS ORDERED: Sodium Chloride 100ML MINI-BAG PLUS 100 ML IV ONE ×2 (00:39→05:43)
[2024-08-11] MEDS: PIPERACILLIN/TAZOBACTAM 3.375 GM in Sodium Chloride 100ML MINI-BAG PLUS 100 ML IV SCH (00:54)
[2024-08-11 04:57] LABS: Absolute Neutrophil Ct (ANC) 5.99 x10^3/uL (1.56-6.13); Basophil (Absolute #) 0 x10^3/uL (0.01-0.08); Eosinophil (Absolute #) 0 x10^3/uL (0.04-0.36); Hematocrit 26.6 % (34.1-44.9); Hemoglobin 8.2 g/dL (11.2-15.7); IMMATURE GRAN # 0.04 x10^3u/L (0.001-0.031); IMMATURE GRAN % 0.5 % (0.001-0.429); Lymphocyte (Absolute #) 1.76 x10^3/uL (1.18-3.74); Lymphocytes % 21.1 % (19.3-51.7); Mean Cell Volume 91.7 fL (79.4-94.8); Mean Corpuscular Hemoglobin 28.3 pg (25.6-32.2); Mean Corpuscular Hgb Concent. 30.8 g/dL (32.2-35.5); Mean Platelet Volume 9.2 fL (9.4-12.3); Monocyte (Absolute #) 0.55 x10^3/uL (0.24-0.86); Monocytes % 6.6 % (4.7-12.5); Neutrophil % 71.8 % (34.0-71.1); Platelet Count 221 x10^3/uL (182-369); Red Cell Distribution Width 18.2 % (11.7-14.4); White Blood Count 8.3 x10^3/uL (3.98-10.04)
[2024-08-11 05:19] LABS: ALBUMIN 1.4 g/dL (3.5-5.0); ANION GAP 10.5 MEQ/L (5-15); BILIRUBIN,TOTAL 0.3 mg/dL (0.2-1.3); Calcium 6.5 mg/dL (8.4-10.2); Creatinine 1 0.51 mg/dL (0.52-1.04); EST GLOMERULAR FILTRATION RATE 97.3 ML/MIN; MAGNESIUM 1.9 mg/dL (1.6-2.3); Potassium 3.1 mmol/L (3.5-5.1); Total Protein 3.4 g/dL (6.3-8.2)
[2024-08-11] MEDS: Lomotil PO SCH (08:09)
[2024-08-11] MEDS ORDERED: Sodium Chloride 0.9% 1000 ML 1,000 ML ONE (08:53)
[2024-08-11] MEDS: POTASSIUM CHLORIDE 20 mEq IN WATER 100ML 100 ML IV SCH (09:10)
[2024-08-11] MEDS ORDERED: Klor Con PO SCH (10:00)
[2024-08-11] MEDS ORDERED: NON-FORMULARY ITEM (Omeprazole [Omeprazole] 20 MG Tablet.Dr) PO SCH (10:00)
[2024-08-11] MEDS: Acidophilus TABLET PO SCH (10:03)
[2024-08-11] MEDS: VITAMIN D PO SCH (10:03)
[2024-08-11] MEDS: xanAX 0.25 MG PO PRN (10:03)
[2024-08-11] MEDS: Tricor 145 MG PO SCH (10:04)
[2024-08-11] MEDS: Protonix 40MG Tablet PO SCH (10:04)
[2024-08-11] MEDS: Cymbalta 30 MG Capsule PO SCH (10:04)
[2024-08-11] MEDS: ELIQUIS 2.5 MG TABLET PO SCH (10:04)
[2024-08-11] MEDS: DELTASONE 20 MG PO SCH (10:05)
[2024-08-11] MEDS: FEOSOL 325 MG PO SCH (10:05)
[2024-08-11] MEDS: LASIX 20 MG PO SCH (10:05)
[2024-08-11] MEDS: Amaryl 2 MG PO SCH (10:09)
[2024-08-11] MEDS: Metamucil PACKET PO SCH (10:11)
[2024-08-11] MEDS: Sodium Chloride 0.9% 1000 ML 1,000 ML IV SCH (10:11)
[2024-08-11] MEDS: AlbuRx 25% 50ML VIAL*** 50 ML in Sodium Chloride 0.9% 250 ML 200 ML IV SCH ×2 (11:52→15:25)
[2024-08-11] MEDS: QUESTRAN Light 4 GM Packet PO SCH (13:22)
--- NOTE | 2024-08-11 13:23 | PCM.NOTE ---
Date and Time: 08/11/24 7637 Subjective Assessment: is a 74 year old female with a history of diabetes mellitus, left upper extremity DVT (on Eliquis), and colitis (for which patient was initially seen here at [facility] and later on at [facility] and was scheduled to have colonoscopy and CT angiogram abdomen pelvis, with questionable ulcerative vs ischemic colitis still having diarrhea 2-3 times a day currently at [facility]). On 08/10 she was brought to the hospital because she was lying in the bed and started to feel lightheaded and near syncopal, with drop of blood pressure in 70s, heart rate in low 50s. The patient has had bilateral 3+ pitting edema in both legs which is progressively worsening. Patient has almost 30 pounds weight loss in the last 3 months since her diarrhea and colitis symptoms started. She denied fever or chills. The patient also has a coccyx wound which seems to be healing and with no discharge, currently under care of wound management at her facility. In the ED, the patient received IV fluids with an improvement in her BP. Workup demonstrated leukocytosis, hypmagnesemia, a lactic acidosis, and colitis on CT scan. IV antibiotics were administered. She states that her diarrhea is overall improved over the past several weeks, but is persistent. The plan is for repeat colonoscopy with Dr. Virginia Goddard next week and considering colostomy placement. CTA abdomen shows diverticulitis. Continue Zosyn. Albumin low so 2 units albumin started. Lactic acid elevated but does not meet sepsis criteria. K+ 3.1 and replaced- trend. TEDS placed on pt to help with edema and hypotension. Will have PT work with pt today. Overnight she admits to 3 loose diarrhea stools. I have a call out to pt's GI to discuss pt case and need for possible transfer for GI. Pt admits to abd. pain and edema. Pt denies CP, SOB, N/V. - Review of Systems Constitutional: No Fever, No Chills Eyes: No Symptoms Ears, Nose, & Throat: No Symptoms Respiratory: No Cough, No Short Of Breath Cardiac: Edema, No Chest Pain, No Syncope Abdominal/Gastrointestinal: Abdominal Pain, Diarrhea, No Nausea, No Vomiting Genitourinary Symptoms: No Dysuria Musculoskeletal: No Back Pain, No Neck Pain Skin: No Rash Neurological: No Dizziness, No Focal Weakness, No Sensory Changes Psychological: No Symptoms Endocrine: No Symptoms Hematologic/Lymphatic: No Symptoms Immunological/Allergic: No Symptoms Objective Exam General Appearance: no apparent distress, alert Neurologic Exam: alert, oriented x 3, cooperative, normal mood/affect, nml cerebellar function, sensation nml, No motor deficits Skin Exam: warm, dry, pale Eye Exam: PERRL, EOMI, eyes nml inspection Ears, Nose, Throat Exam: normal ENT inspection, pharynx normal, moist mucous membranes Neck Exam: normal inspection, non-tender, supple, full range of motion Respiratory Exam: normal breath sounds, lungs clear, No respiratory distress Cardiovascular Exam: regular rate/rhythm, normal heart sounds Gastrointestinal/Abdomen Exam: soft, normal bowel sounds, tenderness, No mass Extremity Exam: normal inspection, normal range of motion Back Exam: normal inspection, normal range of motion, No CVA tenderness, No vertebral tenderness Pelvic Exam: deferred Rectal Exam: deferred Objective Data Vital Signs: Vital Signs - 24 hr Temp Pulse Resp BP BP BP Pulse Ox 08/11/24 12:00 97.5 F 101 H 18 85/50 95 08/11/24 08:00 97.6 F 81 18 98/56 96 08/11/24 04:00 97.0 F 80 18 90/40 96 08/11/24 03:43 97.5 F 100 H 19 87/50 87/50 98 08/11/24 00:00 96.7 F 73 16 86/47 96 08/10/24 20:00 19 08/10/24 19:37 97.5 F 100 H 19 87/50 87/50 98 08/10/24 18:00 90 17 104/54 98 08/10/24 17:52 98 08/10/24 17:45 99 H 15 114/44 97 08/10/24 17:21 88 25 H 104/54 96 08/10/24 17:20 90 18 96 08/10/24 17:10 87 26 H 94 L 08/10/24 17:03 89 16 89 L 08/10/24 16:45 88 16 113/55 97 08/10/24 16:30 88 16 108/66 08/10/24 16:18 104 H 18 102/54 97 08/10/24 16:17 95 08/10/24 15:36 101 H 18 118/59 97 08/10/24 15:30 100 H 28 H 97 08/10/24 15:20 97 H 29 H 98 08/10/24 15:10 94 H 18 98 08/10/24 15:02 96 H 18 100 08/10/24 14:45 97 H 19 103/74 100 08/10/24 14:31 18 97/75 98 08/10/24 14:30 102 H 16 87/61 98 08/10/24 14:15 112 H 24 105/78 99 08/10/24 13:30 109 H 24 110/90 98 Pain Assessment - Last Documented Pain Intensity 0 Intake and Output: Intake & Output 08/09/24 08/10/24 08/11/24 08/12/24 11:59 11:59 11:59 11:59 Intake Total 700 60 Balance 700 60 Weight 76.5 kg Lab Results: Lab Results-Last 24 Hours 08/10/24 08/10/24 08/10/24 Range/Units 13:20 13:20 13:20 WBC 16.6 H (3.98-10.04) x10^3/uL RBC 3.69 L (3.93-5.22) x10^6/uL Hgb 10.5 L (11.2-15.7) g/dL Hct 32.9 L (34.1-44.9) % MCV 89.2 (79.4-94.8) fL MCH 28.5 (25.6-32.2) pg MCHC 31.9 L (32.2-35.5) g/dL RDW 18.0 H (11.7-14.4) % Plt Count 299 (182-369) x10^3/uL MPV 9.2 L (9.4-12.3) fL Gran % 93.0 H (34.0-71.1) % Immature Gran % (Auto) 0.7 H (0.001-0.429) % Nucleat RBC Rel Count 0.0 (0.00-0.2) % Eos # (Auto) 0 L (0.04-0.36) x10^3/uL Immature Gran # (Auto) 0.12 H (0.001-0.031) x10^3u/L Absolute Lymphs (auto) 0.58 L (1.18-3.74) x10^3/uL Absolute Monos (auto) 0.45 (0.24-0.86) x10^3/uL Absolute Nucleated RBC 0.00 (0.00-0.012) x10^3u/L Lymphocytes % 3.5 L (19.3-51.7) % Monocytes % 2.7 L (4.7-12.5) % Eosinophils % 0.0 L (0.7-5.8) % Basophils % 0.1 (0.1-1.2) % Absolute Granulocytes 15.40 H (1.56-6.13) x10^3/uL Basophils # 0.02 (0.01-0.08) x10^3/uL Sodium 128 L (135-145) mmol/L Potassium 4.4 (3.5-5.1) mmol/L Chloride 99 (98-107) mmol/L Carbon Dioxide 20 L (22-30) mmol/L Anion Gap 13.4 (5-15) MEQ/L BUN 37 H (7-17) mg/dL Creatinine 0.81 (0.52-1.04) mg/dL Estimated GFR 75.7 ML/MIN Glucose 281 H (74-106) mg/dL POC Glucometer (74 to 106) mg/dL Lactic Acid 5.5 H (0.4-2.0) Calcium 7.0 L (8.4-10.2) mg/dL Magnesium 1.3 L (1.6-2.3) mg/dL Total Bilirubin 0.20 (0.2-1.3) mg/dL AST 22 (14-36) U/L ALT 21 (0-35) U/L Alkaline Phosphatase 169 H (38-126) U/L Troponin I (0.000-0.033) ng/mL NT-Pro-B Natriuret Pep 672 (<300) pg/mL Serum Total Protein 4.3 L (6.3-8.2) g/dL Albumin 1.8 L (3.5-5.0) g/dL Urine Color (Yellow) Urine Appearance (Clear) Urine pH (4.6-8.0) Ur Specific Weld (1.005-1.030) Urine Protein (Negative) Urine Glucose (UA) (Negative) mg/dL Urine Ketones (Negative) Urine Blood (Negative) Urine Nitrite (Negative) Urine Bilirubin (Negative) Urine Urobilinogen (0.2) mg/dL Ur Leukocyte Esterase (Negative) U Hyaline Cast (Auto) (0-2) /LPF Urine Microscopic RBC (0-5) /HPF Urine Microscopic WBC (0-5) /HPF Ur Epithelial Cells (None Seen) /HPF Urine Bacteria (None Seen) /HPF Urine Culture Reflexed (NO) Slides for Path Review YES 08/10/24 08/10/24 08/10/24 Range/Units 13:20 14:24 15:28 WBC (3.98-10.04) x10^3/uL RBC (3.93-5.22) x10^6/uL Hgb (11.2-15.7) g/dL Hct (34.1-44.9) % MCV (79.4-94.8) fL MCH (25.6-32.2) pg MCHC (32.2-35.5) g/dL RDW (11.7-14.4) % Plt Count (182-369) x10^3/uL MPV (9.4-12.3) fL Gran % (34.0-71.1) % Immature Gran % (Auto) (0.001-0.429) % Nucleat RBC Rel Count (0.00-0.2) % Eos # (Auto) (0.04-0.36) x10^3/uL Immature Gran # (Auto) (0.001-0.031) x10^3u/L Absolute Lymphs (auto) (1.18-3.74) x10^3/uL Absolute Monos (auto) (0.24-0.86) x10^3/uL Absolute Nucleated RBC (0.00-0.012) x10^3u/L Lymphocytes % (19.3-51.7) % Monocytes % (4.7-12.5) % Eosinophils % (0.7-5.8) % Basophils % (0.1-1.2) % Absolute Granulocytes (1.56-6.13) x10^3/uL Basophils # (0.01-0.08) x10^3/uL Sodium (135-145) mmol/L Potassium (3.5-5.1) mmol/L Chloride (98-107) mmol/L Carbon Dioxide (22-30) mmol/L Anion Gap (5-15) MEQ/L BUN (7-17) mg/dL Creatinine (0.52-1.04) mg/dL Estimated GFR ML/MIN Glucose (74-106) mg/dL POC Glucometer (74 to 106) mg/dL Lactic Acid 2.6 H (0.4-2.0) Calcium (8.4-10.2) mg/dL Magnesium (1.6-2.3) mg/dL Total Bilirubin (0.2-1.3) mg/dL AST (14-36) U/L ALT (0-35) U/L Alkaline Phosphatase (38-126) U/L Troponin I < 0.012 (0.000-0.033) ng/mL NT-Pro-B Natriuret Pep (<300) pg/mL Serum Total Protein (6.3-8.2) g/dL Albumin (3.5-5.0) g/dL Urine Color Yellow (Yellow) Urine Appearance Cloudy A (Clear) Urine pH 5.0 (4.6-8.0) Ur Specific Weld 1.020 (1.005-1.030) Urine Protein Trace A (Negative) Urine Glucose (UA) Negative (Negative) mg/dL Urine Ketones Trace A (Negative) Urine Blood Negative (Negative) Urine Nitrite Negative (Negative) Urine Bilirubin Negative (Negative) Urine Urobilinogen 0.2 (0.2) mg/dL Ur Leukocyte Esterase Trace A (Negative) U Hyaline Cast (Auto) 11-20 (0-2) /LPF Urine Microscopic RBC 0-2 (0-5) /HPF Urine Microscopic WBC 3-5 (0-5) /HPF Ur Epithelial Cells Rare (None Seen) /HPF Urine Bacteria Many A (None Seen) /HPF Urine Culture Reflexed YES (NO) Slides for Path Review 08/10/24 08/10/24 08/10/24 Range/Units 17:14 20:20 21:53 WBC (3.98-10.04) x10^3/uL RBC (3.93-5.22) x10^6/uL Hgb (11.2-15.7) g/dL Hct (34.1-44.9) % MCV (79.4-94.8) fL MCH (25.6-32.2) pg MCHC (32.2-35.5) g/dL RDW (11.7-14.4) % Plt Count (182-369) x10^3/uL MPV (9.4-12.3) fL Gran % (34.0-71.1) % Immature Gran % (Auto) (0.001-0.429) % Nucleat RBC Rel Count (0.00-0.2) % Eos # (Auto) (0.04-0.36) x10^3/uL Immature Gran # (Auto) (0.001-0.031) x10^3u/L Absolute Lymphs (auto) (1.18-3.74) x10^3/uL Absolute Monos (auto) (0.24-0.86) x10^3/uL Absolute Nucleated RBC (0.00-0.012) x10^3u/L Lymphocytes % (19.3-51.7) % Monocytes % (4.7-12.5) % Eosinophils % (0.7-5.8) % Basophils % (0.1-1.2) % Absolute Granulocytes (1.56-6.13) x10^3/uL Basophils # (0.01-0.08) x10^3/uL Sodium (135-145) mmol/L Potassium (3.5-5.1) mmol/L Chloride (98-107) mmol/L Carbon Dioxide (22-30) mmol/L Anion Gap (5-15) MEQ/L BUN (7-17) mg/dL Creatinine (0.52-1.04) mg/dL Estimated GFR ML/MIN Glucose (74-106) mg/dL POC Glucometer 292 H (74 to 106) mg/dL Lactic Acid (0.4-2.0) Calcium (8.4-10.2) mg/dL Magnesium (1.6-2.3) mg/dL Total Bilirubin (0.2-1.3) mg/dL AST (14-36) U/L ALT (0-35) U/L Alkaline Phosphatase (38-126) U/L Troponin I < 0.012 < 0.012 (0.000-0.033) ng/mL NT-Pro-B Natriuret Pep (<300) pg/mL Serum Total Protein (6.3-8.2) g/dL Albumin (3.5-5.0) g/dL Urine Color (Yellow) Urine Appearance (Clear) Urine pH (4.6-8.0) Ur Specific Weld (1.005-1.030) Urine Protein (Negative) Urine Glucose (UA) (Negative) mg/dL Urine Ketones (Negative) Urine Blood (Negative) Urine Nitrite (Negative) Urine Bilirubin (Negative) Urine Urobilinogen (0.2) mg/dL Ur Leukocyte Esterase (Negative) U Hyaline Cast (Auto) (0-2) /LPF Urine Microscopic RBC (0-5) /HPF Urine Microscopic WBC (0-5) /HPF Ur Epithelial Cells (None Seen) /HPF Urine Bacteria (None Seen) /HPF Urine Culture Reflexed (NO) Slides for Path Review 08/11/24 08/11/24 08/11/24 Range/Units 04:00 04:30 04:30 WBC 8.3 (3.98-10.04) x10^3/uL RBC 2.90 L (3.93-5.22) x10^6/uL Hgb 8.2 L D (11.2-15.7) g/dL Hct 26.6 L (34.1-44.9) % MCV 91.7 (79.4-94.8) fL MCH 28.3 (25.6-32.2) pg MCHC 30.8 L (32.2-35.5) g/dL RDW 18.2 H (11.7-14.4) % Plt Count 221 (182-369) x10^3/uL MPV 9.2 L (9.4-12.3) fL Gran % 71.8 H (34.0-71.1) % Immature Gran % (Auto) 0.5 H (0.001-0.429) % Nucleat RBC Rel Count 0.0 (0.00-0.2) % Eos # (Auto) 0 L (0.04-0.36) x10^3/uL Immature Gran # (Auto) 0.04 H (0.001-0.031) x10^3u/L Absolute Lymphs (auto) 1.76 (1.18-3.74) x10^3/uL Absolute Monos (auto) 0.55 (0.24-0.86) x10^3/uL Absolute Nucleated RBC 0.00 (0.00-0.012) x10^3u/L Lymphocytes % 21.1 (19.3-51.7) % Monocytes % 6.6 (4.7-12.5) % Eosinophils % 0.0 L (0.7-5.8) % Basophils % 0.0 L (0.1-1.2) % Absolute Granulocytes 5.99 (1.56-6.13) x10^3/uL Basophils # 0 L (0.01-0.08) x10^3/uL Sodium 129 L (135-145) mmol/L Potassium 3.1 L D (3.5-5.1) mmol/L Chloride 101 (98-107) mmol/L Carbon Dioxide 20 L (22-30) mmol/L Anion Gap 10.5 (5-15) MEQ/L BUN 32 H (7-17) mg/dL Creatinine 0.51 L (0.52-1.04) mg/dL Estimated GFR 97.3 ML/MIN Glucose 121 H (74-106) mg/dL POC Glucometer (74 to 106) mg/dL Lactic Acid 5.8 H (0.4-2.0) Calcium 6.5 L (8.4-10.2) mg/dL Magnesium 1.9 (1.6-2.3) mg/dL Total Bilirubin 0.30 (0.2-1.3) mg/dL AST 21 (14-36) U/L ALT 20 (0-35) U/L Alkaline Phosphatase 123 (38-126) U/L Troponin I (0.000-0.033) ng/mL NT-Pro-B Natriuret Pep (<300) pg/mL Serum Total Protein 3.4 L (6.3-8.2) g/dL Albumin 1.4 L (3.5-5.0) g/dL Urine Color (Yellow) Urine Appearance (Clear) Urine pH (4.6-8.0) Ur Specific Weld (1.005-1.030) Urine Protein (Negative) Urine Glucose (UA) (Negative) mg/dL Urine Ketones (Negative) Urine Blood (Negative) Urine Nitrite (Negative) Urine Bilirubin (Negative) Urine Urobilinogen (0.2) mg/dL Ur Leukocyte Esterase (Negative) U Hyaline Cast (Auto) (0-2) /LPF Urine Microscopic RBC (0-5) /HPF Urine Microscopic WBC (0-5) /HPF Ur Epithelial Cells (None Seen) /HPF Urine Bacteria (None Seen) /HPF Urine Culture Reflexed (NO) Slides for Path Review 08/11/24 08/11/24 Range/Units 07:53 11:56 WBC (3.98-10.04) x10^3/uL RBC (3.93-5.22) x10^6/uL Hgb (11.2-15.7) g/dL Hct (34.1-44.9) % MCV (79.4-94.8) fL MCH (25.6-32.2) pg MCHC (32.2-35.5) g/dL RDW (11.7-14.4) % Plt Count (182-369) x10^3/uL MPV (9.4-12.3) fL Gran % (34.0-71.1) % Immature Gran % (Auto) (0.001-0.429) % Nucleat RBC Rel Count (0.00-0.2) % Eos # (Auto) (0.04-0.36) x10^3/uL Immature Gran # (Auto) (0.001-0.031) x10^3u/L Absolute Lymphs (auto) (1.18-3.74) x10^3/uL Absolute Monos (auto) (0.24-0.86) x10^3/uL Absolute Nucleated RBC (0.00-0.012) x10^3u/L Lymphocytes % (19.3-51.7) % Monocytes % (4.7-12.5) % Eosinophils % (0.7-5.8) % Basophils % (0.1-1.2) % Absolute Granulocytes (1.56-6.13) x10^3/uL Basophils # (0.01-0.08) x10^3/uL Sodium (135-145) mmol/L Potassium (3.5-5.1) mmol/L Chloride (98-107) mmol/L Carbon Dioxide (22-30) mmol/L Anion Gap (5-15) MEQ/L BUN (7-17) mg/dL Creatinine (0.52-1.04) mg/dL Estimated GFR ML/MIN Glucose (74-106) mg/dL POC Glucometer 69 L 151 H (74 to 106) mg/dL Lactic Acid (0.4-2.0) Calcium (8.4-10.2) mg/dL Magnesium (1.6-2.3) mg/dL Total Bilirubin (0.2-1.3) mg/dL AST (14-36) U/L ALT (0-35) U/L Alkaline Phosphatase (38-126) U/L Troponin I (0.000-0.033) ng/mL NT-Pro-B Natriuret Pep (<300) pg/mL Serum Total Protein (6.3-8.2) g/dL Albumin (3.5-5.0) g/dL Urine Color (Yellow) Urine Appearance (Clear) Urine pH (4.6-8.0) Ur Specific Weld (1.005-1.030) Urine Protein (Negative) Urine Glucose (UA) (Negative) mg/dL Urine Ketones (Negative) Urine Blood (Negative) Urine Nitrite (Negative) Urine Bilirubin (Negative) Urine Urobilinogen (0.2) mg/dL Ur Leukocyte Esterase (Negative) U Hyaline Cast (Auto) (0-2) /LPF Urine Microscopic RBC (0-5) /HPF Urine Microscopic WBC (0-5) /HPF Ur Epithelial Cells (None Seen) /HPF Urine Bacteria (None Seen) /HPF Urine Culture Reflexed (NO) Slides for Path Review Radiology Exams: Radiology Procedures Category Date Time Status CHEST 1 VIEW (PORTABLE) Stat Exams 08/10/24 12:57 Completed CTA ABD/PEL W AND/OR W/O CONTR [CT] Stat Exams 08/10/24 14:27 Completed Assessment/Plan (1) Diverticulitis Current Visit: Yes Status: Acute Assessment & Plan: - Call out to Dr. Hess with GI at [place] - Planned repeat colonoscopy next week () with GI In [place]- will possibly need colostomy. - Zosyn - CBC. CMP reviewed - Abd CT/Pelvis reviewed - BCx2 pending Code(s): K57.92 - DVTRCLI OF INTEST, PART UNSP, W/O PERF OR ABSCESS W/O BLEED (2) UTI (urinary tract infection) Current Visit: Yes Status: Acute Assessment & Plan: - UC gram neg. sensitivity pending - Zosyn Code(s): N39.0 - URINARY TRACT INFECTION, SITE NOT SPECIFIED (3) Elevated lactic acid level Current Visit: Yes Status: Acute Assessment & Plan: - LA 5.8- recheck at noon- does not meet sepsis criteria - unable to give IV fluids at his time. - will checks lab again this afternoon - 2:2 CHF? - will obtain last echo Code(s): R79.89 - OTHER SPECIFIED ABNORMAL FINDINGS OF BLOOD CHEMISTRY (4) Decubitus ulcer of coccyx, stage 2 Current Visit: Yes Status: Chronic Assessment & Plan: - PT eval and treat Code(s): L89.152 - PRESSURE ULCER OF SACRAL REGION, STAGE 2 (5) Anemia Current Visit: Yes Status: Chronic Assessment & Plan: - hgb 8.2 - iron def. anemia - continue ferrous sulfate Code(s): D64.9 - ANEMIA, UNSPECIFIED (6) Edema due to hypoalbuminemia Current Visit: Yes Status: Acute Assessment & Plan: - albumin 1.4- 2 units ordered Code(s): E88.09 - OTH DISORDERS OF PLASMA-PROTEIN METABOLISM, NEC (7) Dizziness Current Visit: Yes Status: Acute Assessment & Plan: - TEDS - HR and BP improved but low overnight - PT eval Code(s): R42 - DIZZINESS AND GIDDINESS (8) Hyponatremia Current Visit: Yes Status: Acute Assessment & Plan: - Na+ 129- trend- unable to give fluids Code(s): E87.1 - HYPO-OSMOLALITY AND HYPONATREMIA (9) Anxiety Current Visit: No Status: Chronic Assessment & Plan: - Continue Xanax PRN Code(s): F41.9 - ANXIETY DISORDER, UNSPECIFIED (10) Type 2 diabetes mellitus Current Visit: No Status: Chronic Assessment & Plan: - Monitor sugars on ISS. - Hold metformin due to acidosis. (11) Hypomagnesemia Current Visit: Yes Status: Resolved Assessment & Plan: - resolved Code(s): E83.42 - HYPOMAGNESEMIA (12) Metabolic acidosis Current Visit: No Status: Resolved Assessment & Plan: - Co2 20- trend Code(s): E87.20 - ACIDOSIS, UNSPECIFIED (13) Hypokalemia due to excessive gastrointestinal loss of potassium Current Visit: No Status: Acute Assessment & Plan: - K+ 3.1- replaced- trend - tele VTE: Eliquis PPI: Protonix Next of KIN: Marco Antonio Choudhury [phone] D/C plan: 2-3 days Code status: Full Code(s): E87.6 - HYPOKALEMIA
[2024-08-11 14:41] LABS: ALBUMIN 1.6 g/dL (3.5-5.0); ANION GAP 8.9 MEQ/L (5-15); BILIRUBIN,TOTAL 0.3 mg/dL (0.2-1.3); Calcium 6.3 mg/dL (8.4-10.2); Creatinine 1 0.5 mg/dL (0.52-1.04); EST GLOMERULAR FILTRATION RATE 97.8 ML/MIN; MAGNESIUM 1.7 mg/dL (1.6-2.3); Potassium 3.3 mmol/L (3.5-5.1); Total Protein 3.8 g/dL (6.3-8.2)
[2024-08-11] MEDS: LOTRIMIN CREAM 30 GM TOP SCH (15:29)
[2024-08-11] MEDS ORDERED: POTASSIUM CHLORIDE 20 mEq IN WATER 100ML 100 ML IV ONE (18:48)
[2024-08-12 06:22] LABS: Hematocrit 26.3 % (34.1-44.9); Hemoglobin 8.2 g/dL (11.2-15.7); Mean Cell Volume 91.6 fL (79.4-94.8); Mean Corpuscular Hemoglobin 28.6 pg (25.6-32.2); Mean Corpuscular Hgb Concent. 31.2 g/dL (32.2-35.5); Mean Platelet Volume 9.4 fL (9.4-12.3); Platelet Count 157 x10^3/uL (182-369); Red Blood Count 2.87 x10^6/uL (3.93-5.22); Red Cell Distribution Width 18.5 % (11.7-14.4); White Blood Count 6.9 x10^3/uL (3.98-10.04)
[2024-08-12 06:44] LABS: ALBUMIN 1.5 g/dL (3.5-5.0); ANION GAP 8.7 MEQ/L (5-15); BILIRUBIN,TOTAL 0.3 mg/dL (0.2-1.3); Calcium 6.7 mg/dL (8.4-10.2); Creatinine 1 0.37 mg/dL (0.52-1.04); EST GLOMERULAR FILTRATION RATE 105.1 ML/MIN; MAGNESIUM 1.8 mg/dL (1.6-2.3); Potassium 3.2 mmol/L (3.5-5.1); Total Protein 3.5 g/dL (6.3-8.2)
[2024-08-12 07:56] LABS: Iron 36 ug/dL (37-170); Iron Saturation 36 % (20-39); TIBC 99 ug/dL (265-462)
[2024-08-12] MEDS ORDERED: AlbuRx 25% 50ML VIAL*** 50 ML in Sodium Chloride 0.9% 250 ML 200 ML IV SCH (08:00)
[2024-08-12] MEDS: AlbuRx 25% 50ML VIAL*** 50 ML IV SCH (08:49)
[2024-08-12 09:29] LABS: Folate (Folic Acid) 5.71 ng/mL (2.76 - >20)
[2024-08-12 09:41] LABS: 027 TOX PROD PRESUMPTIVE NEGATIVE (NEGATIVE); TOXIGENIC C. DIFF ORG NEGATIVE (NEGATIVE)
[2024-08-12] MEDS: TYLENOL 325 MG PO PRN (10:49)
[2024-08-12] MEDS: POTASSIUM CHLORIDE 20 mEq IN WATER 100ML 100 ML IV SCH (12:49)
--- NOTE | 2024-08-12 14:39 | PCM.NOTE ---
Date and Time: 08/12/24 1427 Subjective Assessment: 08/11 is a 74 year old female with a history of diabetes mellitus, left upper extremity DVT (on Eliquis), and colitis (for which patient was initially seen here at [facility] and later on at [facility] and was scheduled to have colonoscopy and CT angiogram abdomen pelvis, with questionable ulcerative vs ischemic colitis still having diarrhea 2-3 times a day currently at [facility]). On 08/10 she was brought to the hospital because she was lying in the bed and started to feel lightheaded and near syncopal, with drop of blood pressure in 70s, heart rate in low 50s. The patient has had bilateral 3+ pitting edema in both legs which is progressively worsening. Patient has almost 30 pounds weight loss in the last 3 months since her diarrhea and colitis symptoms started. She denied fever or chills. The patient also has a coccyx wound which seems to be healing and with no discharge, currently under care of wound management at her facility. In the ED, the patient received IV fluids with an improvement in her BP. Workup demonstrated leukocytosis, hypmagnesemia, a lactic acidosis, and colitis on CT scan. IV antibiotics were administered. She states that her diarrhea is overall improved over the past several weeks, but is persistent. The plan is for repeat colonoscopy with Dr. Virginia Goddard next week and considering colostomy placement. CTA abdomen shows diverticulitis. Continue Zosyn. Albumin low so 2 units albumin started. Lactic acid elevated but does not meet sepsis criteria. K+ 3.1 and replaced- trend. TEDS placed on pt to help with edema and hypotension. Will have PT work with pt today. Overnight she admits to 3 loose diarrhea stools. I have a call out to pt's GI to discuss pt case and need for possible transfer for GI. Pt admits to abd. pain and edema. Pt denies CP, SOB, N/V. 2/ Pt resting in bed. BLLE edema improved with TEDS but her thighs remain edematous. RUE edematous. Discussed with nurse to start a new IV. Venous duplex of BLLE and BLUE to be done Wednesday. Albumin gave again today x 2 doses. Will consult nutrition for low albumin. Urine culture + for enterobacter continue Zosyn. K+ 3.2 replaced. Will order c-diff for continued diarrhea. Pt did have hypoglycemia this AM and improved with diet. Pt states she does not like to eat in the morning. Report read from [place] and pt has a dx of ulcerative colitis per GI. Steroids started IV today from PO. Pt states she is frustrated as she is going 4 months of being ill. If sxs do not improve by Wednesday consider tx to [facility] in [place] as that is where her GI provider is and she wants to f/u for the scheduled scope . She is feeling week but declined the purewick. She denies CP, SOB, N/V. - Review of Systems Constitutional: Weakness, No Fever, No Chills Eyes: No Symptoms Ears, Nose, & Throat: No Symptoms Respiratory: No Cough, No Short Of Breath Cardiac: Edema (RUE, BLLE), No Chest Pain, No Syncope Abdominal/Gastrointestinal: Abdominal Pain, Diarrhea, No Nausea, No Vomiting Genitourinary Symptoms: No Dysuria Musculoskeletal: No Back Pain, No Neck Pain Skin: No Rash Neurological: No Dizziness, No Focal Weakness, No Sensory Changes Psychological: No Symptoms Endocrine: No Symptoms Hematologic/Lymphatic: No Symptoms Immunological/Allergic: No Symptoms Objective Exam General Appearance: no apparent distress, alert Neurologic Exam: alert, oriented x 3, cooperative, normal mood/affect, nml cer ebellar function, sensation nml, No motor deficits Skin Exam: normal color, warm, dry Eye Exam: PERRL, EOMI, eyes nml inspection Ears, Nose, Throat Exam: normal ENT inspection, pharynx normal, moist mucous membranes Neck Exam: normal inspection, non-tender, supple, full range of motion Respiratory Exam: normal breath sounds, lungs clear, No respiratory distress Cardiovascular Exam: regular rate/rhythm, normal heart sounds Gastrointestinal/Abdomen Exam: soft, tenderness, No mass Extremity Exam: normal inspection, normal range of motion Back Exam: normal inspection, normal range of motion, No CVA tenderness, No vertebral tenderness Pelvic Exam: deferred Rectal Exam: deferred Objective Data Vital Signs: Vital Signs - 24 hr Temp Pulse Resp BP Pulse Ox 08/12/24 12:00 23 08/12/24 11:38 96.9 F 93 H 23 104/54 97 08/12/24 08:00 20 08/12/24 07:47 96.6 F 81 20 89/47 95 08/12/24 04:00 97.9 F 74 17 94/51 94 L 08/12/24 00:00 16 08/11/24 23:56 97.1 F 74 16 82/45 96 08/11/24 20:00 97.9 F 91 H 18 101/56 97 08/11/24 16:00 98 F 76 16 93/48 98 Pain Assessment - Last Documented Pain Intensity 0 Pain Scale Used 0-10 Pain Scale Intake and Output: Intake & Output 08/10/24 08/11/24 08/12/24 08/13/24 11:59 11:59 11:59 11:59 Intake Total 700 2997 Balance 700 2997 Weight 76.5 kg Lab Results: Lab Results-Last 24 Hours 08/11/24 08/11/24 08/11/24 Range/Units 14:18 14:20 17:14 WBC (3.98-10.04) x10^3/uL RBC (3.93-5.22) x10^6/uL Hgb (11.2-15.7) g/dL Hct (34.1-44.9) % MCV (79.4-94.8) fL MCH (25.6-32.2) pg MCHC (32.2-35.5) g/dL RDW (11.7-14.4) % Plt Count (182-369) x10^3/uL MPV (9.4-12.3) fL Sodium 127 L (135-145) mmol/L Potassium 3.3 L (3.5-5.1) mmol/L Chloride 100 (98-107) mmol/L Carbon Dioxide 22 (22-30) mmol/L Anion Gap 8.9 (5-15) MEQ/L BUN 24 H (7-17) mg/dL Creatinine 0.50 L (0.52-1.04) mg/dL Estimated GFR 97.8 ML/MIN Glucose 240 H (74-106) mg/dL POC Glucometer 263 H (74 to 106) mg/dL Lactic Acid 4.0 H (0.4-2.0) Calcium 6.3 L (8.4-10.2) mg/dL Magnesium 1.7 (1.6-2.3) mg/dL Iron (37-170) ug/dL TIBC (265-462) ug/dL Iron Saturation (20-39) % Ferritin (11.1-264) ng/mL Total Bilirubin 0.30 (0.2-1.3) mg/dL AST 26 (14-36) U/L ALT 17 (0-35) U/L Alkaline Phosphatase 129 H (38-126) U/L Serum Total Protein 3.8 L (6.3-8.2) g/dL Albumin 1.6 L (3.5-5.0) g/dL Vitamin B12 (239-931) pg/mL Folic Acid (2.76 - >20) ng/mL C. difficile Screen (NEGATIVE) C.difficile 027-NAP1-B1 (NEGATIVE) 08/11/24 08/12/24 08/12/24 Range/Units 20:56 04:00 06:15 WBC 6.9 (3.98-10.04) x10^3/uL RBC 2.87 L (3.93-5.22) x10^6/uL Hgb 8.2 L (11.2-15.7) g/dL Hct 26.3 L (34.1-44.9) % MCV 91.6 (79.4-94.8) fL MCH 28.6 (25.6-32.2) pg MCHC 31.2 L (32.2-35.5) g/dL RDW 18.5 H (11.7-14.4) % Plt Count 157 L (182-369) x10^3/uL MPV 9.4 (9.4-12.3) fL Sodium (135-145) mmol/L Potassium (3.5-5.1) mmol/L Chloride (98-107) mmol/L Carbon Dioxide (22-30) mmol/L Anion Gap (5-15) MEQ/L BUN (7-17) mg/dL Creatinine (0.52-1.04) mg/dL Estimated GFR ML/MIN Glucose (74-106) mg/dL POC Glucometer 261 H (74 to 106) mg/dL Lactic Acid 4.6 H (0.4-2.0) Calcium (8.4-10.2) mg/dL Magnesium (1.6-2.3) mg/dL Iron (37-170) ug/dL TIBC (265-462) ug/dL Iron Saturation (20-39) % Ferritin (11.1-264) ng/mL Total Bilirubin (0.2-1.3) mg/dL AST (14-36) U/L ALT (0-35) U/L Alkaline Phosphatase (38-126) U/L Serum Total Protein (6.3-8.2) g/dL Albumin (3.5-5.0) g/dL Vitamin B12 (239-931) pg/mL Folic Acid (2.76 - >20) ng/mL C. difficile Screen (NEGATIVE) C.difficile 027-NAP1-B1 (NEGATIVE) 08/12/24 08/12/24 08/12/24 Range/Units 06:15 06:15 06:15 WBC (3.98-10.04) x10^3/uL RBC (3.93-5.22) x10^6/uL Hgb (11.2-15.7) g/dL Hct (34.1-44.9) % MCV (79.4-94.8) fL MCH (25.6-32.2) pg MCHC (32.2-35.5) g/dL RDW (11.7-14.4) % Plt Count (182-369) x10^3/uL MPV (9.4-12.3) fL Sodium 134 L D (135-145) mmol/L Potassium 3.2 L (3.5-5.1) mmol/L Chloride 106 (98-107) mmol/L Carbon Dioxide 22 (22-30) mmol/L Anion Gap 8.7 (5-15) MEQ/L BUN 17 (7-17) mg/dL Creatinine 0.37 L (0.52-1.04) mg/dL Estimated GFR 105.1 ML/MIN Glucose 59 L (74-106) mg/dL POC Glucometer (74 to 106) mg/dL Lactic Acid (0.4-2.0) Calcium 6.7 L (8.4-10.2) mg/dL Magnesium 1.8 (1.6-2.3) mg/dL Iron 36 L (37-170) ug/dL TIBC 99 L (265-462) ug/dL Iron Saturation 36 (20-39) % Ferritin 477 H (11.1-264) ng/mL Total Bilirubin 0.30 (0.2-1.3) mg/dL AST 20 (14-36) U/L ALT 15 (0-35) U/L Alkaline Phosphatase 106 (38-126) U/L Serum Total Protein 3.5 L (6.3-8.2) g/dL Albumin 1.5 L (3.5-5.0) g/dL Vitamin B12 823 (239-931) pg/mL Folic Acid 5.71 (2.76 - >20) ng/mL C. difficile Screen (NEGATIVE) C.difficile 027-NAP1-B1 (NEGATIVE) 08/12/24 08/12/24 08/12/24 Range/Units 07:17 07:34 07:54 WBC (3.98-10.04) x10^3/uL RBC (3.93-5.22) x10^6/uL Hgb (11.2-15.7) g/dL Hct (34.1-44.9) % MCV (79.4-94.8) fL MCH (25.6-32.2) pg MCHC (32.2-35.5) g/dL RDW (11.7-14.4) % Plt Count (182-369) x10^3/uL MPV (9.4-12.3) fL Sodium (135-145) mmol/L Potassium (3.5-5.1) mmol/L Chloride (98-107) mmol/L Carbon Dioxide (22-30) mmol/L Anion Gap (5-15) MEQ/L BUN (7-17) mg/dL Creatinine (0.52-1.04) mg/dL Estimated GFR ML/MIN Glucose (74-106) mg/dL POC Glucometer 63 L 56 L 71 L (74 to 106) mg/dL Lactic Acid (0.4-2.0) Calcium (8.4-10.2) mg/dL Magnesium (1.6-2.3) mg/dL Iron (37-170) ug/dL TIBC (265-462) ug/dL Iron Saturation (20-39) % Ferritin (11.1-264) ng/mL Total Bilirubin (0.2-1.3) mg/dL AST (14-36) U/L ALT (0-35) U/L Alkaline Phosphatase (38-126) U/L Serum Total Protein (6.3-8.2) g/dL Albumin (3.5-5.0) g/dL Vitamin B12 (239-931) pg/mL Folic Acid (2.76 - >20) ng/mL C. difficile Screen (NEGATIVE) C.difficile 027-NAP1-B1 (NEGATIVE) 08/12/24 08/12/24 Range/Units 08:00 11:17 WBC (3.98-10.04) x10^3/uL RBC (3.93-5.22) x10^6/uL Hgb (11.2-15.7) g/dL Hct (34.1-44.9) % MCV (79.4-94.8) fL MCH (25.6-32.2) pg MCHC (32.2-35.5) g/dL RDW (11.7-14.4) % Plt Count (182-369) x10^3/uL MPV (9.4-12.3) fL Sodium (135-145) mmol/L Potassium (3.5-5.1) mmol/L Chloride (98-107) mmol/L Carbon Dioxide (22-30) mmol/L Anion Gap (5-15) MEQ/L BUN (7-17) mg/dL Creatinine (0.52-1.04) mg/dL Estimated GFR ML/MIN Glucose (74-106) mg/dL POC Glucometer 157 H (74 to 106) mg/dL Lactic Acid (0.4-2.0) Calcium (8.4-10.2) mg/dL Magnesium (1.6-2.3) mg/dL Iron (37-170) ug/dL TIBC (265-462) ug/dL Iron Saturation (20-39) % Ferritin (11.1-264) ng/mL Total Bilirubin (0.2-1.3) mg/dL AST (14-36) U/L ALT (0-35) U/L Alkaline Phosphatase (38-126) U/L Serum Total Protein (6.3-8.2) g/dL Albumin (3.5-5.0) g/dL Vitamin B12 (239-931) pg/mL Folic Acid (2.76 - >20) ng/mL C. difficile Screen NEGATIVE (NEGATIVE) C.difficile 027-NAP1-B1 PRESUMPTIVE NEGATIVE (NEGATIVE) Radiology Exams: Radiology Procedures Category Date Time Status CTA ABD/PEL W AND/OR W/O CONTR [CT] Stat Exams 08/10/24 14:27 Completed VENOUS BILATERAL EXTREMITY [US] Routine Exams 08/12/24 11:05 Ordered Assessment/Plan (1) Diverticulitis Current Visit: Yes Status: Acute Code(s): K57.92 - DVTRCLI OF INTEST, PART UNSP, W/O PERF OR ABSCESS W/O BLEED (2) UTI (urinary tract infection) Current Visit: Yes Status: Acute Code(s): N39.0 - URINARY TRACT INFECTION, SITE NOT SPECIFIED (3) Elevated lactic acid level Current Visit: Yes Status: Acute Code(s): R79.89 - OTHER SPECIFIED ABNORMAL FINDINGS OF BLOOD CHEMISTRY (4) Decubitus ulcer of coccyx, stage 2 Current Visit: Yes Status: Chronic Code(s): L89.152 - PRESSURE ULCER OF SACRAL REGION, STAGE 2 (5) Anemia Current Visit: Yes Status: Chronic Code(s): D64.9 - ANEMIA, UNSPECIFIED (6) Edema due to hypoalbuminemia Current Visit: Yes Status: Acute Code(s): E88.09 - OTH DISORDERS OF PLASMA- PROTEIN METABOLISM, NEC (7) Dizziness Current Visit: Yes Status: Acute Code(s): R42 - DIZZINESS AND GIDDINESS (8) Hyponatremia Current Visit: Yes Status: Acute Code(s): E87.1 - HYPO-OSMOLALITY AND HYPONATREMIA (9) Anxiety Current Visit: No Status: Chronic Code(s): F41.9 - ANXIETY DISORDER, UNSPECIFIED (10) Type 2 diabetes mellitus Current Visit: No Status: Chronic (11) Hypomagnesemia Current Visit: Yes Status: Resolved Code(s): E83.42 - HYPOMAGNESEMIA (12) Metabolic acidosis Current Visit: No Status: Resolved Code(s): E87.20 - ACIDOSIS, UNSPECIFIED (13) Hypokalemia due to excessive gastrointestinal loss of potassium Current Visit: No Status: Acute Assessment & Plan: (1) Diverticulitis Current Visit: Yes Status: Acute Assessment & Plan: - Call out to Dr. Hess with GI at [place] - Planned repeat colonoscopy next week () with GI In [place]- will possibly need colostomy. - Zosyn - CBC. CMP reviewed - Abd CT/Pelvis reviewed - BCx2 pending 08/12 - BC x2 negative - CBC, CMP reviewed Code(s): K57.92 - DVTRCLI OF INTEST, PART UNSP, W/O PERF OR ABSCESS W/O BLEED (2) UTI (urinary tract infection) Current Visit: Yes Status: Acute Assessment & Plan: - UC gram neg. sensitivity pending - Zosyn 08/12 - UC enterobactor- cont. Zosyn IV Code(s): N39.0 - URINARY TRACT INFECTION, SITE NOT SPECIFIED (3) Elevated lactic acid level Current Visit: Yes Status: Acute Assessment & Plan: - LA 5.8- recheck at noon- does not meet sepsis criteria - unable to give IV fluids at his time. - will checks lab again this afternoon - 2:2 CHF? - will obtain last echo 08/12 - LA 4.6 - Cont. NS @ 100 ml/hr Code(s): R79.89 - OTHER SPECIFIED ABNORMAL FINDINGS OF BLOOD CHEMISTRY (4) Decubitus ulcer of coccyx, stage 2 Current Visit: Yes Status: Chronic Assessment & Plan: - PT eval and treat - Prostat 64 - nutrition consult Code(s): L89.152 - PRESSURE ULCER OF SACRAL REGION, STAGE 2 (5) Anemia Current Visit: Yes Status: Chronic Assessment & Plan: - hgb 8.2 - iron def. anemia - continue ferrous sulfate Code(s): D64.9 - ANEMIA, UNSPECIFIED (6) Edema due to hypoalbuminemia Current Visit: Yes Status: Acute Assessment & Plan: - albumin 1.4- 2 units ordered 2/ - albumin 1.5- 2units ordered - Nutrition consult Code(s): E88.09 - OTH DISORDERS OF PLASMA-PROTEIN METABOLISM, NEC (7) Dizziness Current Visit: Yes Status: Acute Assessment & Plan: - TEDS - HR and BP improved but low overnight - PT eval Code(s): R42 - DIZZINESS AND GIDDINESS (8) Hyponatremia Current Visit: Yes Status: Acute Assessment & Plan: - Na+ 129- trend- unable to give fluids 08/12 - Na+ 134- mild- trend Code(s): E87.1 - HYPO-OSMOLALITY AND HYPONATREMIA (9) Anxiety Current Visit: No Status: Chronic Assessment & Plan: - Continue Xanax PRN Code(s): F41.9 - ANXIETY DISORDER, UNSPECIFIED (10) Type 2 diabetes mellitus Current Visit: No Status: Chronic Assessment & Plan: - Monitor sugars on ISS. - Hold metformin due to acidosis. / - hypoglycemia protocol PRN - hold glimepiride (11) Hypomagnesemia Current Visit: Yes Status: Resolved Assessment & Plan: - resolved Code(s): E83.42 - HYPOMAGNESEMIA (12) Metabolic acidosis Current Visit: No Status: Resolved Assessment & Plan: - Co2 20- trend 08/12 - resolved Code(s): E87.20 - ACIDOSIS, UNSPECIFIED (13) Hypokalemia due to excessive gastrointestinal loss of potassium Current Visit: No Status: Acute Assessment & Plan: - K+ 3.1- replaced- trend - tele 08/12 - K+ 3.2 replaced Code(s): E87.6 - HYPOKALEMIA (14) Ulcerative colitis Current Visit: Yes Status: Acute Assessment & Plan: - Records from [place] reviewed with confirmed dx - Started IV steroids today - Consider tx to [place] for GI VTE: Eliquis PPI: Protonix Next of KIN: Marco Antonio Choudhury [phone] D/C plan: 2-3 days Code status: Full Code(s): K51.90 - ULCERATIVE COLITIS, UNSPECIFIED, WITHOUT COMPLICATIONS
[2024-08-12] MEDS ORDERED: GlucaGen 1 MG IM PRN (14:47)
[2024-08-12] MEDS ORDERED: D50W 50 ml Abboject IV PRN (14:47)
[2024-08-12] MEDS ORDERED: Glutose 15 GM ORAL GEL PO PRN (14:47)
--- NOTE | 2024-08-12 20:33 | XRAY ---
Indication: Bilateral edema. Two-dimensional sonogram and color Doppler imaging major venous vessels left and right leg performed. Comparison: None No thrombus seen in the examined deep venous vessels left and right leg including greater saphenous vein. Veins demonstrate normal compressibility. Venous waveforms are normal with and without augmentation. Impression: Left and right legs negative for DVT. Comment: Preliminary report was given.
[2024-08-13] MEDS: ZOFRAN ODT 4 MG PO PRN (04:19)
[2024-08-13] MEDS: Oxy-IR 5 MG PO PRN (04:19)
[2024-08-13 06:24] LABS: Hematocrit 23.5 % (34.1-44.9); Hemoglobin 7.4 g/dL (11.2-15.7); Mean Cell Volume 90.7 fL (79.4-94.8); Mean Corpuscular Hemoglobin 28.6 pg (25.6-32.2); Mean Corpuscular Hgb Concent. 31.5 g/dL (32.2-35.5); Mean Platelet Volume 9.3 fL (9.4-12.3); Platelet Count 149 x10^3/uL (182-369); Red Blood Count 2.59 x10^6/uL (3.93-5.22); Red Cell Distribution Width 18.1 % (11.7-14.4); White Blood Count 5.3 x10^3/uL (3.98-10.04)
[2024-08-13 06:54] LABS: ALBUMIN 1.5 g/dL (3.5-5.0); ANION GAP 7.6 MEQ/L (5-15); BILIRUBIN,TOTAL 0.3 mg/dL (0.2-1.3); Calcium 6.4 mg/dL (8.4-10.2); Creatinine 1 0.33 mg/dL (0.52-1.04); MAGNESIUM 1.4 mg/dL (1.6-2.3); Potassium 3.7 mmol/L (3.5-5.1); Total Protein 3.6 g/dL (6.3-8.2)
[2024-08-13] MEDS ORDERED: AlbuRx 25% 50ML VIAL*** 50 ML in Sodium Chloride 0.9% 250 ML 200 ML IV SCH (08:00)
[2024-08-13] MEDS: MAGNESIUM SULF 2 G/50 ML BAG 2 GM/50 ML PIGGYBACK IV ONE (08:26)
[2024-08-13] MEDS: AlbuRx 25% 50ML VIAL*** 50 ML IV ONE (09:22)
[2024-08-13] MEDS: solu-MEDROL 40 MG, Sterile H2O 10 ml 1 ML IV SCH ×2 (09:48→21:16)
[2024-08-13] MEDS ORDERED: Mylicon 80MG PO PRN (12:08)
--- NOTE | 2024-08-13 12:11 | PCM.NOTE ---
Date and Time: 08/13/24 1159 Subjective Assessment: 08/11 is a 74 year old female with a history of diabetes mellitus, left upper extremity DVT (on Eliquis), and colitis (for which patient was initially seen here at [facility] and later on at [facility] and was scheduled to have colonoscopy and CT angiogram abdomen pelvis, with questionable ulcerative vs ischemic colitis still having diarrhea 2-3 times a day currently at [facility]). On 08/10 she was brought to the hospital because she was lying in the bed and started to feel lightheaded and near syncopal, with drop of blood pressure in 70s, heart rate in low 50s. The patient has had bilateral 3+ pitting edema in both legs which is progressively worsening. Patient has almost 30 pounds weight loss in the last 3 months since her diarrhea and colitis symptoms started. She denied fever or chills. The patient also has a coccyx wound which seems to be healing and with no discharge, currently under care of wound management at her facility. In the ED, the patient received IV fluids with an improvement in her BP. Workup demonstrated leukocytosis, hypmagnesemia, a lactic acidosis, and colitis on CT scan. IV antibiotics were administered. She states that her diarrhea is overall improved over the past several weeks, but is persistent. The plan is for repeat colonoscopy with Dr. Virginia Goddard next week and considering colostomy placement. CTA abdomen shows diverticulitis. Continue Zosyn. Albumin low so 2 units albumin started. Lactic acid elevated but does not meet sepsis criteria. K+ 3.1 and replaced- trend. TEDS placed on pt to help with edema and hypotension. Will have PT work with pt today. Overnight she admits to 3 loose diarrhea stools. I have a call out to pt's GI to discuss pt case and need for possible transfer for GI. Pt admits to abd. pain and edema. Pt denies CP, SOB, N/V. 2/ Pt resting in bed. BLLE edema improved with TEDS but her thighs remain edematous. RUE edematous. Discussed with nurse to start a new IV. Venous duplex of BLLE and BLUE to be done Wednesday. Albumin gave again today x 2 doses. Will consult nutrition for low albumin. Urine culture + for enterobacter continue Zosyn. K+ 3.2 replaced. Will order c-diff for continued diarrhea. Pt did have hypoglycemia this AM and improved with diet. Pt states she does not like to eat in the morning. Report read from [facility] and pt has a dx of ulcerative colitis per GI. Steroids started IV today from PO. Pt states she is frustrated as she is going 4 months of being ill. If sxs do not improve by Wednesday consider tx to [facility] in [place] as that is where her GI provider is and she wants to f/u for the scheduled scope . She is feeling week but declined the purewick. She denies CP, SOB, N/V. 2/2 Pt resting in bed. She started to have increased abd pain last night and required narcotic pain medication. She described the pain as sharp. She states she is unsure how to explaiin but she does not feel right today and feels woozy and solis out of it at times. She tried to sit up and sxs worsened. Hgb dropped and albumnin not improving despite replacement. H& H Q6 ordered. Will increase steroids today to BID for ulcerative colitis. Mg+ 1.4 and replaced. Stopped Zosyn and changed to Rocephin per Dr. Atwood recommendation. Continue Prostat 64 wound healing, and nutrition consulted for low albumin. BC X2 negative. She is unsure if stools are dark or bloody. BM's are foul smelling like a GI bleed. Stopped vitamin C tab. Continue Eliquis as the benefits outweigh the risk of stopping at this time. Gas- x added per pt request. If sxs do not improve tomorrow consider tx to higher level of care. She denies CP, SOB, N/V. She continues to have diarrhea but states, "it's not as bad as it has been." I forgot to note Wednesday that I did not receive a call back from pt's GI to discuss case. This could be attempted again tomorrow. - Review of Systems Constitutional: Weakness, No Fever, No Chills Eyes: No Symptoms Ears, Nose, & Throat: No Symptoms Respiratory: No Cough, No Short Of Breath Cardiac: No Chest Pain, No Edema, No Syncope Abdominal/Gastrointestinal: Abdominal Pain, Diarrhea, No Nausea, No Vomiting Genitourinary Symptoms: No Dysuria Musculoskeletal: No Back Pain, No Neck Pain Skin: No Rash Neurological: Sensory Changes, No Dizziness, No Focal Weakness Psychological: No Symptoms Endocrine: No Symptoms Hematologic/Lymphatic: No Symptoms Immunological/Allergic: No Symptoms Objective Exam General Appearance: no apparent distress, alert Neurologic Exam: alert, oriented x 3, cooperative, normal mood/affect, nml cerebellar function, sensation nml, motor weakness, No motor deficits Skin Exam: normal color, warm, dry Eye Exam: PERRL, EOMI, eyes nml inspection Ears, Nose, Throat Exam: normal ENT inspection, pharynx normal, moist mucous membranes Neck Exam: normal inspection, non-tender, supple, full range of motion Respiratory Exam: normal breath sounds, lungs clear, No respiratory distress Cardiovascular Exam: regular rate/rhythm, normal heart sounds Gastrointestinal/Abdomen Exam: soft, tenderness, No mass Extremity Exam: normal inspection, normal range of motion Back Exam: normal inspection, normal range of motion, No CVA tenderness, No vertebral tenderness Pelvic Exam: deferred Rectal Exam: deferred Objective Data Vital Signs: Vital Signs - 24 hr Temp Pulse Resp BP Pulse Ox 08/13/24 08:00 16 08/13/24 07:38 98.0 F 80 16 91/55 94 L 08/13/24 04:00 98.4 F 78 20 110/56 96 08/13/24 00:00 100.5 F 76 20 94/53 95 08/12/24 20:00 20 08/12/24 19:55 97.0 F 20 L 20 106/57 96 08/12/24 16:00 96.6 F 83 22 93/54 94 L 08/12/24 12:00 23 Pain Assessment - Last Documented Pain Intensity 0 Pain Scale Used [facility] Intake and Output: Intake & Output 08/10/24 08/11/24 08/12/24 08/13/24 11:59 11:59 11:59 11:59 Intake Total 700 2997 4029 Balance 700 2997 4029 Weight 76.5 kg Lab Results: Lab Results-Last 24 Hours 08/12/24 08/12/24 08/13/24 Range/Units 16:22 21:11 06:15 WBC 5.3 (3.98-10.04) x10^3/uL RBC 2.59 L (3.93-5.22) x10^6/uL Hgb 7.4 L (11.2-15.7) g/dL Hct 23.5 L (34.1-44.9) % MCV 90.7 (79.4-94.8) fL MCH 28.6 (25.6-32.2) pg MCHC 31.5 L (32.2-35.5) g/dL RDW 18.1 H (11.7-14.4) % Plt Count 149 L (182-369) x10^3/uL MPV 9.3 L (9.4-12.3) fL Sodium (135-145) mmol/L Potassium (3.5-5.1) mmol/L Chloride (98-107) mmol/L Carbon Dioxide (22-30) mmol/L Anion Gap (5-15) MEQ/L BUN (7-17) mg/dL Creatinine (0.52-1.04) mg/dL Estimated GFR ML/MIN Glucose (74-106) mg/dL POC Glucometer 277 H 203 H (74 to 106) mg/dL Calcium (8.4-10.2) mg/dL Magnesium (1.6-2.3) mg/dL Total Bilirubin (0.2-1.3) mg/dL AST (14-36) U/L ALT (0-35) U/L Alkaline Phosphatase (38-126) U/L Serum Total Protein (6.3-8.2) g/dL Albumin (3.5-5.0) g/dL 08/13/24 08/13/24 08/13/24 Range/Units 06:15 06:51 11:11 WBC (3.98-10.04) x10^3/uL RBC (3.93-5.22) x10^6/uL Hgb (11.2-15.7) g/dL Hct (34.1-44.9) % MCV (79.4-94.8) fL MCH (25.6-32.2) pg MCHC (32.2-35.5) g/dL RDW (11.7-14.4) % Plt Count (182-369) x10^3/uL MPV (9.4-12.3) fL Sodium 134 L (135-145) mmol/L Potassium 3.7 (3.5-5.1) mmol/L Chloride 108 H (98-107) mmol/L Carbon Dioxide 22 (22-30) mmol/L Anion Gap 7.6 (5-15) MEQ/L BUN 12 (7-17) mg/dL Creatinine 0.33 L (0.52-1.04) mg/dL Estimated GFR 108.0 ML/MIN Glucose 105 (74-106) mg/dL POC Glucometer 95 171 H (74 to 106) mg/dL Calcium 6.4 L (8.4-10.2) mg/dL Magnesium 1.4 L (1.6-2.3) mg/dL Total Bilirubin 0.30 (0.2-1.3) mg/dL AST 18 (14-36) U/L ALT 17 (0-35) U/L Alkaline Phosphatase 101 (38-126) U/L Serum Total Protein 3.6 L (6.3-8.2) g/dL Albumin 1.5 L (3.5-5.0) g/dL Radiology Exams: Radiology Procedures Category Date Time Status VENOUS BILATERAL EXTREMITY [US] Routine Exams 08/12/24 11:05 Completed Assessment/Plan (1) Diverticulitis Current Visit: Yes Status: Acute Code(s): K57.92 - DVTRCLI OF INTEST, PART UNSP, W/O PERF OR ABSCESS W/O BLEED (2) UTI (urinary tract infection) Current Visit: Yes Status: Acute Code(s): N39.0 - URINARY TRACT INFECTION, SITE NOT SPECIFIED (3) Elevated lactic acid level Current Visit: Yes Status: Acute Code(s): R79.89 - OTHER SPECIFIED ABNORMAL FINDINGS OF BLOOD CHEMISTRY (4) Decubitus ulcer of coccyx, stage 2 Current Visit: Yes Status: Chronic Code(s): L89.152 - PRESSURE ULCER OF SACRAL REGION, STAGE 2 (5) Anemia Current Visit: Yes Status: Chronic Code(s): D64.9 - ANEMIA, UNSPECIFIED (6) Edema due to hypoalbuminemia Current Visit: Yes Status: Acute Code(s): E88.09 - OTH DISORDERS OF PLASMA- PROTEIN METABOLISM, NEC (7) Dizziness Current Visit: Yes Status: Acute Code(s): R42 - DIZZINESS AND GIDDINESS (8) Hyponatremia Current Visit: Yes Status: Acute Code(s): E87.1 - HYPO-OSMOLALITY AND HYPONATREMIA (9) Anxiety Current Visit: No Status: Chronic Code(s): F41.9 - ANXIETY DISORDER, UNSPECIFIED (10) Type 2 diabetes mellitus Current Visit: No Status: Chronic (11) Hypomagnesemia Current Visit: Yes Status: Resolved Code(s): E83.42 - HYPOMAGNESEMIA (12) Metabolic acidosis Current Visit: No Status: Resolved Code(s): E87.20 - ACIDOSIS, UNSPECIFIED (13) Hypokalemia due to excessive gastrointestinal loss of potassium Current Visit: No Status: Acute Code(s): E87.6 - HYPOKALEMIA (14) Ulcerative colitis Current Visit: Yes Status: Acute Assessment & Plan: (1) Diverticulitis Current Visit: Yes Status: Acute Assessment & Plan: - Call out to Dr. Hess with GI at [facility]- no call back from office - Planned repeat colonoscopy next week () with GI In [place]- will possibly need colostomy. - Zosyn - CBC. CMP reviewed - Abd CT/Pelvis reviewed - BCx2 pending 08/12 - BC x2 negative - CBC, CMP reviewed 2/2 - Likely ulcerative colitis - CBC, CMP reviewed Code(s): K57.92 - DVTRCLI OF INTEST, PART UNSP, W/O PERF OR ABSCESS W/O BLEED (2) UTI (urinary tract infection) Current Visit: Yes Status: Acute Assessment & Plan: - UC gram neg. sensitivity pending - Zosyn 2 - UC enterobactor- cont. Zosyn IV 2/ - antibiotic changed to ceftriaxone Code(s): N39.0 - URINARY TRACT INFECTION, SITE NOT SPECIFIED (3) Elevated lactic acid level Current Visit: Yes Status: Acute Assessment & Plan: - LA 5.8- recheck at noon- does not meet sepsis criteria - unable to give IV fluids at his time. - will checks lab again this afternoon - 2:2 CHF? - will obtain last echo 08/12 - LA 4.6 - Cont. NS @ 100 ml/hr 2/2 - LA pending - IVF Code(s): R79.89 - OTHER SPECIFIED ABNORMAL FINDINGS OF BLOOD CHEMISTRY (4) Decubitus ulcer of coccyx, stage 2 Current Visit: Yes Status: Chronic Assessment & Plan: - PT eval and treat - Prostat 64 - nutrition consult Code(s): L89.152 - PRESSURE ULCER OF SACRAL REGION, STAGE 2 (5) Anemia Current Visit: Yes Status: Chronic Assessment & Plan: - hgb 8.2 - iron def. anemia - continue ferrous sulfate 2/2 - Hgb 7.4- trend - H& H Q6 Code(s): D64.9 - ANEMIA, UNSPECIFIED (6) Edema due to hypoalbuminemia Current Visit: Yes Status: Acute Assessment & Plan: - albumin 1.4- 2 units ordered 2/ - albumin 1.5- 2units ordered - Nutrition consult 2/2 - albumin 1.5 - 1 unit ordered as that is al we have left at this time.- more to come in tomorrow per pharmacy Code(s): E88.09 - OTH DISORDERS OF PLASMA-PROTEIN METABOLISM, NEC (7) Dizziness Current Visit: Yes Status: Acute Assessment & Plan: - TEDS - HR and BP improved but low overnight - PT eval Code(s): R42 - DIZZINESS AND GIDDINESS (8) Hyponatremia Current Visit: Yes Status: Acute Assessment & Plan: - Na+ 129- trend- unable to give fluids / - Na+ 134- mild- trend 2/2 - Na+ 134- mild- trend Code(s): E87.1 - HYPO-OSMOLALITY AND HYPONATREMIA (9) Anxiety Current Visit: No Status: Chronic Assessment & Plan: - Continue Xanax PRN Code(s): F41.9 - ANXIETY DISORDER, UNSPECIFIED (10) Type 2 diabetes mellitus Current Visit: No Status: Chronic Assessment & Plan: - Monitor sugars on ISS. - Hold metformin due to acidosis. 2/ - hypoglycemia protocol PRN - hold glimepiride / - Humalog s/s only - no oral meds (11) Hypomagnesemia Current Visit: Yes Status: Resolved Assessment & Plan: - resolved Code(s): E83.42 - HYPOMAGNESEMIA (12) Metabolic acidosis Current Visit: No Status: Resolved Assessment & Plan: - Co2 20- trend 08/12 - resolved Code(s): E87.20 - ACIDOSIS, UNSPECIFIED (13) Hypokalemia due to excessive gastrointestinal loss of potassium Current Visit: No Status: Acute Assessment & Plan: - K+ 3.1- replaced- trend - tele 2/1 - K+ 3.2 replaced 2/2 - resolved Code(s): E87.6 - HYPOKALEMIA (14) Ulcerative colitis Current Visit: Yes Status: Acute Assessment & Plan: - Records from [facility] reviewed with confirmed dx - Started IV steroids today - Consider tx to [facility] for GI 2/2 - increased steroids to BID dosing - IV antibiotic Code(s): K51.90 - ULCERATIVE COLITIS, UNSPECIFIED, WITHOUT COMPLICATIONS Code(s): K51.90 - ULCERATIVE COLITIS, UNSPECIFIED, WITHOUT COMPLICATIONS (15) Hypomagnesemia Current Visit: Yes Status: Acute Assessment & Plan: - Mg+ 1.4- replaced VTE: Eliquis PPI: Protonix Next of KIN: Marco Antonio Choudhury [phone] D/C plan: 2-3 days? or transfer to higher level of care Code status: Full Code(s): E83.42 - HYPOMAGNESEMIA
[2024-08-13 13:01] LABS: Hematocrit 26.1 % (34.1-44.9); Hemoglobin 8.3 g/dL (11.2-15.7)
[2024-08-13 18:54] LABS: Hematocrit 24.4 % (34.1-44.9); Hemoglobin 7.6 g/dL (11.2-15.7)
[2024-08-13] MEDS: ROCEPHIN 1 GM / 100 ML NaCl 1 GM/100 ML IVPB IV SCH (21:16)
[2024-08-14 05:12] LABS: Hematocrit 22.7 % (34.1-44.9); Hemoglobin 7.1 g/dL (11.2-15.7); Mean Cell Volume 91.5 fL (79.4-94.8); Mean Corpuscular Hemoglobin 28.6 pg (25.6-32.2); Mean Corpuscular Hgb Concent. 31.3 g/dL (32.2-35.5); Mean Platelet Volume 9.5 fL (9.4-12.3); Platelet Count 163 x10^3/uL (182-369); Red Blood Count 2.48 x10^6/uL (3.93-5.22); White Blood Count 4.3 x10^3/uL (3.98-10.04)
--- NOTE | 2024-08-14 05:23 | PCM.NOTE ---
Date and Time: 08/14/24516 Subjective Assessment: is a 74 year old female with a history of diabetes mellitus, left upper extremity DVT (on Eliquis), and colitis (for which patient was initially seen here at [facility] and later on at [facility] and was scheduled to have colonoscopy and CT angiogram abdomen pelvis, with questionable ulcerative vs ischemic colitis still having diarrhea 2-3 times a day currently at [facility]). On 08/10 she was brought to the hospital because she was lying in the bed and started to feel lightheaded and near syncopal, with drop of blood pressure in 70s, heart rate in low 50s. The patient has had bilateral 3+ pitting edema in both legs which is progressively worsening. Patient has almost 30 pounds weight loss in the last 3 months since her diarrhea and colitis symptoms started. She denied fever or chills. The patient also has a coccyx wound which seems to be healing and with no drainage, currently under care of wound management at her facility. In the ED, the patient received IV fluids with an improvement in her BP. Workup demonstrated leukocytosis, hypomagnesemia, a lactic acidosis, and colitis on CT scan. IV antibiotics were administered. She states that her diarrhea is overall improved over the past several weeks, but is persistent. The plan is for repeat colonoscopy with Dr. Virginia Goddard next week and considering colostomy placement. CTA abdomen shows diverticulitis. IP treatment initially with Zosyn and changed to Ceftriaxone 09/05. Per documentation from [facility], patient diagnosed with ulcerative colitis. IV steroids have been initiated. Patient has also received 2 units of albumin for hypoalbuminemia. Venous duplex of BLLE and BLUE to be done Wednesday. Pt states she is frustrated as she is going 4 months of being ill. If sxs do not improve by Wednesday consider tx to [facility] in [place] as that is where her GI provider is and she wants to f/u for the scheduled scope . GI provider has been contacted for advisement - awaiting return call. Ucult with enterobacter with sensitivity to Ceftriaxone. Objective Data Vital Signs: Vital Signs - 24 hr Temp Pulse Resp BP Pulse Ox 08/14/24 04:00 16 08/14/24 03:00 97.9 F 71 16 95/57 97 08/14/24 00:00 20 08/13/24 23:00 97.5 F 74 19 100/50 96 08/13/24 20:00 18 08/13/24 19:19 97.9 F 83 17 108/56 95 08/13/24 16:00 97.9 F 99 H 16 103/55 94 L 08/13/24 12:00 98.0 F 92 H 21 107/54 95 08/13/24 08:00 16 08/13/24 07:38 98.0 F 80 16 91/55 94 L Pain Assessment - Last Documented Pain Intensity 0 Pain Scale [facility] Intake and Output: Intake & Output 08/11/24 08/12/24 08/13/24 08/14/24 11:59 11:59 11:59 11:59 Intake Total 700 2997 4029 1578 Balance 700 2997 4029 1578 Weight 76.5 kg Lab Results: Lab Results-Last 24 Hours 08/13/24 08/13/24 08/13/24 Range/Units 06:15 06:15 06:51 WBC 5.3 (3.98-10.04) x10^3/uL RBC 2.59 L (3.93-5.22) x10^6/uL Hgb 7.4 L (11.2-15.7) g/dL Hct 23.5 L (34.1-44.9) % MCV 90.7 (79.4-94.8) fL MCH 28.6 (25.6-32.2) pg MCHC 31.5 L (32.2-35.5) g/dL RDW 18.1 H (11.7-14.4) % Plt Count 149 L (182-369) x10^3/uL MPV 9.3 L (9.4-12.3) fL Sodium 134 L (135-145) mmol/L Potassium 3.7 (3.5-5.1) mmol/L Chloride 108 H (98-107) mmol/L Carbon Dioxide 22 (22-30) mmol/L Anion Gap 7.6 (5-15) MEQ/L BUN 12 (7-17) mg/dL Creatinine 0.33 L (0.52-1.04) mg/dL Estimated GFR 108.0 ML/MIN Glucose 105 (74-106) mg/dL POC Glucometer 95 (74 to 106) mg/dL Lactic Acid (0.4-2.0) Calcium 6.4 L (8.4-10.2) mg/dL Magnesium 1.4 L (1.6-2.3) mg/dL Total Bilirubin 0.30 (0.2-1.3) mg/dL AST 18 (14-36) U/L ALT 17 (0-35) U/L Alkaline Phosphatase 101 (38-126) U/L Serum Total Protein 3.6 L (6.3-8.2) g/dL Albumin 1.5 L (3.5-5.0) g/dL 08/13/24 08/13/24 08/13/24 Range/Units 11:11 12:52 16:12 WBC (3.98-10.04) x10^3/uL RBC (3.93-5.22) x10^6/uL Hgb 8.3 L (11.2-15.7) g/dL Hct 26.1 L (34.1-44.9) % MCV (79.4-94.8) fL MCH (25.6-32.2) pg MCHC (32.2-35.5) g/dL RDW (11.7-14.4) % Plt Count (182-369) x10^3/uL MPV (9.4-12.3) fL Sodium (135-145) mmol/L Potassium (3.5-5.1) mmol/L Chloride (98-107) mmol/L Carbon Dioxide (22-30) mmol/L Anion Gap (5-15) MEQ/L BUN (7-17) mg/dL Creatinine (0.52-1.04) mg/dL Estimated GFR ML/MIN Glucose (74-106) mg/dL POC Glucometer 171 H 314 H (74 to 106) mg/dL Lactic Acid (0.4-2.0) Calcium (8.4-10.2) mg/dL Magnesium (1.6-2.3) mg/dL Total Bilirubin (0.2-1.3) mg/dL AST (14-36) U/L ALT (0-35) U/L Alkaline Phosphatase (38-126) U/L Serum Total Protein (6.3-8.2) g/dL Albumin (3.5-5.0) g/dL 08/13/24 08/13/24 08/13/24 Range/Units 18:50 18:52 20:46 WBC (3.98-10.04) x10^3/uL RBC (3.93-5.22) x10^6/uL Hgb 7.6 L (11.2-15.7) g/dL Hct 24.4 L (34.1-44.9) % MCV (79.4-94.8) fL MCH (25.6-32.2) pg MCHC (32.2-35.5) g/dL RDW (11.7-14.4) % Plt Count (182-369) x10^3/uL MPV (9.4-12.3) fL Sodium (135-145) mmol/L Potassium (3.5-5.1) mmol/L Chloride (98-107) mmol/L Carbon Dioxide (22-30) mmol/L Anion Gap (5-15) MEQ/L BUN (7-17) mg/dL Creatinine (0.52-1.04) mg/dL Estimated GFR ML/MIN Glucose (74-106) mg/dL POC Glucometer 249 H (74 to 106) mg/dL Lactic Acid 5.8 H (0.4-2.0) Calcium (8.4-10.2) mg/dL Magnesium (1.6-2.3) mg/dL Total Bilirubin (0.2-1.3) mg/dL AST (14-36) U/L ALT (0-35) U/L Alkaline Phosphatase (38-126) U/L Serum Total Protein (6.3-8.2) g/dL Albumin (3.5-5.0) g/dL 08/14/24 Range/Units 04:50 WBC (3.98-10.04) x10^3/uL RBC (3.93-5.22) x10^6/uL Hgb (11.2-15.7) g/dL Hct (34.1-44.9) % MCV (79.4-94.8) fL MCH (25.6-32.2) pg MCHC (32.2-35.5) g/dL RDW (11.7-14.4) % Plt Count (182-369) x10^3/uL MPV (9.4-12.3) fL Sodium (135-145) mmol/L Potassium (3.5-5.1) mmol/L Chloride (98-107) mmol/L Carbon Dioxide (22-30) mmol/L Anion Gap (5-15) MEQ/L BUN (7-17) mg/dL Creatinine (0.52-1.04) mg/dL Estimated GFR ML/MIN Glucose (74-106) mg/dL POC Glucometer (74 to 106) mg/dL Lactic Acid 4.1 H (0.4-2.0) Calcium (8.4-10.2) mg/dL Magnesium (1.6-2.3) mg/dL Total Bilirubin (0.2-1.3) mg/dL AST (14-36) U/L ALT (0-35) U/L Alkaline Phosphatase (38-126) U/L Serum Total Protein (6.3-8.2) g/dL Albumin (3.5-5.0) g/dL Radiology Exams: Radiology Procedures Category Date Time Status VENOUS BILATERAL EXTREMITY [US] Routine Exams 08/12/24 11:05 Completed Multi-Disciplinary Progress Notes: Multi-Disciplinary Progress Notes 08/13/24 16:12 Respiratory Note by Maciel,Kim lactic acid being drawn at 1800 due to tech tied up in ER until 1615 and family asked if we could wait until her 1800 draw at this time due to extreme hard stick . Initialized on 08/13/24 16:12 - END OF NOTE Assessment/Plan (1) Diverticulitis Current Visit: Yes Status: Acute Assessment & Plan: - Call out to Dr. Hess with GI at [facility] - Planned repeat colonoscopy next week () with GI In [place]- will possibly need colostomy. - Antimicrobial history: - Zosyn - discontinued 08/13/24 -Ceftriaxone started 08/13/24 - Abd CT/Pelvis reviewed demonstrating diffuse sigmoid diverticulitis - patient with diagnosis of UC - BC x2 negative - CBC, CMP reviewed - WBC WNL at 4.3 Code(s): K57.92 - DVTRCLI OF INTEST, PART UNSP, W/O PERF OR ABSCESS W/O BLEED (2) Edema due to hypoalbuminemia Current Visit: Yes Status: Acute Assessment & Plan: -Received 5 units of albumin -albumin level reviewed at 1.6>1.5 - Nutrition consult Code(s): E88.09 - OTH DISORDERS OF PLASMA-PROTEIN METABOLISM, NEC (3) UTI (urinary tract infection) Current Visit: Yes Status: Acute Assessment & Plan: - UC enterobactor- continue ceftriaxone Code(s): N39.0 - URINARY TRACT INFECTION, SITE NOT SPECIFIED (4) Hyponatremia Current Visit: Yes Status: Acute Assessment & Plan: - In the setting of Hypervolemia - continue diruetics and continue to monitor Code(s): E87.1 - HYPO-OSMOLALITY AND HYPONATREMIA (5) Dizziness Current Visit: Yes Status: Acute Assessment & Plan: - TEDS - PT eval Code(s): R42 - DIZZINESS AND GIDDINESS (6) Ulcerative colitis Current Visit: Yes Status: Acute Assessment & Plan: - Records from [facility] reviewed with confirmed dx -Call made to GI- awaiting return call - IV steroids - Consider tx to [facility] for GI Code(s): K51.90 - ULCERATIVE COLITIS, UNSPECIFIED, WITHOUT COMPLICATIONS (7) Anemia Current Visit: Yes Status: Chronic Assessment & Plan: - iron def. anemia - continue ferrous sulfate -Hgb reviewed at 7.1 Code(s): D64.9 - ANEMIA, UNSPECIFIED (8) Decubitus ulcer of coccyx, stage 2 Current Visit: Yes Status: Chronic Assessment & Plan: - PT eval wound therapy consult and treat - Prostat 64 - nutrition consult Code(s): L89.152 - PRESSURE ULCER OF SACRAL REGION, STAGE 2 (9) Hypokalemia due to excessive gastrointestinal loss of potassium Current Visit: No Status: Acute Assessment & Plan: - tele -Replenish per protocol -potassium reviewed at 3.8 - resolved -continue potassium supplementation Code(s): E87.6 - HYPOKALEMIA (10) Urinary tract infection Current Visit: No Status: Acute Assessment & Plan: - UC enterobactor- continue ceftriaxone Code(s): N39.0 - URINARY TRACT INFECTION, SITE NOT SPECIFIED (11) Metabolic acidosis Current Visit: No Status: Resolved Assessment & Plan: - resolved - co2 reviewed at 23 VTE: Eliquis PPI: Protonix Next of KIN: Marco Antonio Choudhury [phone] D/C plan: 2-3 days Code status: Full Code(s): E87.20 - ACIDOSIS, UNSPECIFIED
[2024-08-14 05:44] LABS: ALBUMIN 1.6 g/dL (3.5-5.0); BILIRUBIN,TOTAL 0.2 mg/dL (0.2-1.3); Calcium 6.6 mg/dL (8.4-10.2); Creatinine 1 0.36 mg/dL (0.52-1.04); EST GLOMERULAR FILTRATION RATE 105.8 ML/MIN; Potassium 3.8 mmol/L (3.5-5.1); Total Protein 3.6 g/dL (6.3-8.2)
[2024-08-14] MEDS: Klor Con PO SCH (10:02)
--- NOTE | 2024-08-14 14:06 | PCM.DS ---
Discharge Summary Date of Admission: 08/12/24 11:05 Date of Discharge: 08/14/24 Admitting Physician: ATILIO SARABIA MD Consults: Consults on Case 08/12/24 14:30 Nutritional Consult ROUTINE 08/12/24 14:47 Notify Physician ROUTINE Primary Care Provider: [facility] Allergies Allergies sulfamethoxazole [From Bactrim] Allergy (Verified 08/10/24 12:47) trimethoprim [From Bactrim] Allergy (Verified 08/10/24 12:47) meperidine HCl [From Demerol] Adverse Reaction (Mild, Verified 08/10/24 12:47) [facility] Summary - Hospital Course Hospital Course: is a 74 year old female with a history of diabetes mellitus, left upper extremity DVT (on Eliquis), and colitis (for which patient was initially seen here at [facility] and later on at [facility] and was scheduled to have colonoscopy and CT angiogram abdomen pelvis, with questionable ulcerative vs ischemic colitis still having diarrhea 2-3 times a day currently at [facility]). On 08/10 she was brought to the hospital because she was lying in the bed and started to feel lightheaded and near syncopal, with drop of blood pressure in 70s, heart rate in low 50s. T he patient has had bilateral 3+ pitting edema in both legs which is progressively worsening. Patient has almost 30 pounds weight loss in the last 3 months since her diarrhea and colitis symptoms started. She denied fever or chills. The patient also has a coccyx wound which seems to be healing and with no drainage, currently under care of wound management at her facility. In the ED, the patient received IV fluids with an improvement in her BP. Workup demonstrated leukocytosis, hypomagnesemia, a lactic acidosis, and colitis on CT scan. IV antibiotics were administered. She states that her diarrhea is overall improved over the past several weeks, but is persistent. The plan is for repeat colonoscopy with Dr. Virginia Goddard next week and considering colostomy placement. CTA abdomen shows diverticulitis. IP treatment initially with Zosyn and changed to Ceftriaxone 09/05. Per documentation from [place], patient diagnosed with ulcerative colitis. IV steroids have been initiated. Patient has also received 2 units of albumin for hypoalbuminemia. Venous duplex of BLLE and BLUE to be done Wednesday. Pt states she is frustrated as she is going 4 months of being ill. Ucult with enterobacter with sensitivity to Ceftriaxone. Symptoms have not improved. Will transfer to higher level of care with GI specialty. Discharge Note Latest Assessment & Plan 1) Diverticulitis Current Visit: Yes Status: Acute Assessment & Plan: - Call out to Dr. Hess with GI at [place] - Planned repeat colonoscopy next week () with GI In [place]- will possibly need colostomy. - Antimicrobial history: - Zosyn - discontinued 08/13/24 -Ceftriaxone started 08/13/24 - Abd CT/Pelvis reviewed demonstrating diffuse sigmoid diverticulitis - patient with diagnosis of UC - BC x2 negative - CBC, CMP reviewed - WBC WNL at 4.3 Code(s): K57.92 - DVTRCLI OF INTEST, PART UNSP, W/O PERF OR ABSCESS W/O BLEED (2) Edema due to hypoalbuminemia Current Visit: Yes Status: Acute Assessment & Plan: -Received 5 units of albumin -albumin level reviewed at 1.6>1.5 - Nutrition consult Code(s): E88.09 - OTH DISORDERS OF PLASMA-PROTEIN METABOLISM, NEC (3) UTI (urinary tract infection) Current Visit: Yes Status: Acute Assessment & Plan: - UC enterobactor- continue ceftriaxone Code(s): N39.0 - URINARY TRACT INFECTION, SITE NOT SPECIFIED (4) Hyponatremia Current Visit: Yes Status: Acute Assessment & Plan: - In the setting of Hypervolemia - continue diruetics and continue to monitor Code(s): E87.1 - HYPO-OSMOLALITY AND HYPONATREMIA (5) Dizziness Current Visit: Yes Status: Acute Assessment & Plan: - TEDS - PT eval Code(s): R42 - DIZZINESS AND GIDDINESS (6) Ulcerative colitis Current Visit: Yes Status: Acute Assessment & Plan: - Records from [place] reviewed with confirmed dx -Call made to GI- awaiting return call - IV steroids - Consider tx to [place] for GI Code(s): K51.90 - ULCERATIVE COLITIS, UNSPECIFIED, WITHOUT COMPLICATIONS (7) Anemia Current Visit: Yes Status: Chronic Assessment & Plan: - iron def. anemia - continue ferrous sulfate -Hgb reviewed at 7.1 Code(s): D64.9 - ANEMIA, UNSPECIFIED (8) Decubitus ulcer of coccyx, stage 2 Current Visit: Yes Status: Chronic Assessment & Plan: - PT eval wound therapy consult and treat - Prostat 64 - nutrition consult Code(s): L89.152 - PRESSURE ULCER OF SACRAL REGION, STAGE 2 (9) Hypokalemia due to excessive gastrointestinal loss of potassium Current Visit: No Status: Acute Assessment & Plan: - tele -Replenish per protocol -potassium reviewed at 3.8 - resolved -continue potassium supplementation Code(s): E87.6 - HYPOKALEMIA (10) Urinary tract infection Current Visit: No Status: Acute Assessment & Plan: - UC enterobactor- continue ceftriaxone Code(s): N39.0 - URINARY TRACT INFECTION, SITE NOT SPECIFIED (11) Metabolic acidosis Current Visit: No Status: Resolved Assessment & Plan: - resolved - co2 reviewed at 23 I spent 35 minutes [id number] with the patient on the day of discharge performing discharge exam, discussing hospital stay and discharge instructions with patient and caregivers, preparation of discharge records, prescriptions & referral forms and addressing any questions/concerns the patient had as doc umented above. - Vitals & Intake/Output Vital Signs: Vital Signs Temperature 96.3 F 08/14/24 11:00 Pulse Rate 81 08/14/24 11:00 Respiratory Rate 16 08/14/24 12:00 Blood Pressure 109/55 08/14/24 11:00 O2 Sat by Pulse Oximetry 98 08/14/24 11:00 Intake & Output: Intake & Output 08/12/24 08/13/24 08/14/24 08/15/24 11:59 11:59 11:59 11:59 Intake Total 2997 4029 1818 Balance 2997 4029 1818 - Lab Result Diagrams: 08/14/24 04:30 08/14/24 04:30 Lab Results-Last 24 Hrs: Lab Results-Last 24 Hours 08/13/24 08/13/24 08/13/24 Range/Units 16:12 18:50 18:52 WBC (3.98-10.04) x10^3/uL RBC (3.93-5.22) x10^6/uL Hgb 7.6 L (11.2-15.7) g/dL Hct 24.4 L (34.1-44.9) % MCV (79.4-94.8) fL MCH (25.6-32.2) pg MCHC (32.2-35.5) g/dL RDW (11.7-14.4) % Plt Count (182-369) x10^3/uL MPV (9.4-12.3) fL Sodium (135-145) mmol/L Potassium (3.5-5.1) mmol/L Chloride (98-107) mmol/L Carbon Dioxide (22-30) mmol/L Anion Gap (5-15) MEQ/L BUN (7-17) mg/dL Creatinine (0.52-1.04) mg/dL Estimated GFR ML/MIN Glucose (74-106) mg/dL POC Glucometer 314 H (74 to 106) mg/dL Lactic Acid 5.8 H (0.4-2.0) Calcium (8.4-10.2) mg/dL Magnesium (1.6-2.3) mg/dL Total Bilirubin (0.2-1.3) mg/dL AST (14-36) U/L ALT (0-35) U/L Alkaline Phosphatase (38-126) U/L Serum Total Protein (6.3-8.2) g/dL Albumin (3.5-5.0) g/dL 08/13/24 08/14/24 08/14/24 Range/Units 20:46 04:30 04:30 WBC 4.3 (3.98-10.04) x10^3/uL RBC 2.48 L (3.93-5.22) x10^6/uL Hgb 7.1 L (11.2-15.7) g/dL Hct 22.7 L (34.1-44.9) % MCV 91.5 (79.4-94.8) fL MCH 28.6 (25.6-32.2) pg MCHC 31.3 L (32.2-35.5) g/dL RDW 18.0 H (11.7-14.4) % Plt Count 163 L (182-369) x10^3/uL MPV 9.5 (9.4-12.3) fL Sodium (135-145) mmol/L Potassium (3.5-5.1) mmol/L Chloride (98-107) mmol/L Carbon Dioxide (22-30) mmol/L Anion Gap (5-15) MEQ/L BUN (7-17) mg/dL Creatinine (0.52-1.04) mg/dL Estimated GFR ML/MIN Glucose (74-106) mg/dL POC Glucometer 249 H (74 to 106) mg/dL Lactic Acid (0.4-2.0) Calcium (8.4-10.2) mg/dL Magnesium 1.6 (1.6-2.3) mg/dL Total Bilirubin (0.2-1.3) mg/dL AST (14-36) U/L ALT (0-35) U/L Alkaline Phosphatase (38-126) U/L Serum Total Protein (6.3-8.2) g/dL Albumin (3.5-5.0) g/dL 08/14/24 08/14/24 08/14/24 Range/Units 04:30 04:50 07:44 WBC (3.98-10.04) x10^3/uL RBC (3.93-5.22) x10^6/uL Hgb (11.2-15.7) g/dL Hct (34.1-44.9) % MCV (79.4-94.8) fL MCH (25.6-32.2) pg MCHC (32.2-35.5) g/dL RDW (11.7-14.4) % Plt Count (182-369) x10^3/uL MPV (9.4-12.3) fL Sodium 134 L (135-145) mmol/L Potassium 3.8 (3.5-5.1) mmol/L Chloride 106 (98-107) mmol/L Carbon Dioxide 23 (22-30) mmol/L Anion Gap 9.0 (5-15) MEQ/L BUN 12 (7-17) mg/dL Creatinine 0.36 L (0.52-1.04) mg/dL Estimated GFR 105.8 ML/MIN Glucose 189 H (74-106) mg/dL POC Glucometer 147 H (74 to 106) mg/dL Lactic Acid 4.1 H (0.4-2.0) Calcium 6.6 L (8.4-10.2) mg/dL Magnesium (1.6-2.3) mg/dL Total Bilirubin 0.20 (0.2-1.3) mg/dL AST 18 (14-36) U/L ALT 18 (0-35) U/L Alkaline Phosphatase 96 (38-126) U/L Serum Total Protein 3.6 L (6.3-8.2) g/dL Albumin 1.6 L (3.5-5.0) g/dL 08/14/24 Range/Units 11:57 WBC (3.98-10.04) x10^3/uL RBC (3.93-5.22) x10^6/uL Hgb (11.2-15.7) g/dL Hct (34.1-44.9) % MCV (79.4-94.8) fL MCH (25.6-32.2) pg MCHC (32.2-35.5) g/dL RDW (11.7-14.4) % Plt Count (182-369) x10^3/uL MPV (9.4-12.3) fL Sodium (135-145) mmol/L Potassium (3.5-5.1) mmol/L Chloride (98-107) mmol/L Carbon Dioxide (22-30) mmol/L Anion Gap (5-15) MEQ/L BUN (7-17) mg/dL Creatinine (0.52-1.04) mg/dL Estimated GFR ML/MIN Glucose (74-106) mg/dL POC Glucometer 217 H (74 to 106) mg/dL Lactic Acid (0.4-2.0) Calcium (8.4-10.2) mg/dL Magnesium (1.6-2.3) mg/dL Total Bilirubin (0.2-1.3) mg/dL AST (14-36) U/L ALT (0-35) U/L Alkaline Phosphatase (38-126) U/L Serum Total Protein (6.3-8.2) g/dL Albumin (3.5-5.0) g/dL Micro Results-Entire Visit: Microbiology 08/10/24 14:24 Urine Culture - Final Urine, Catheterized Enterobacter Clocae Complex 08/10/24 13:28 Blood Culture - Preliminary Blood 08/10/24 13:20 Blood Culture - Preliminary Blood Accuchecks Date 08/14/24 Date 08/14/24 Time 12:14 Time 08:02 - Procedures and Test Procedures and Tests throughout Hospitalization: Therapy Orders & Screens 08/10/24 19:38 PT Eval & Treat ( Order) ONCE Reason for Eval:: dizziness, and wound care Diagnosis: Sigmoid colitis, sepsis, hypomagnesemia Discharge Exam General Appearance: no apparent distress Neurologic Exam: alert, oriented x 3, cooperative Eye Exam: PERRL Ears, Nose, Throat Exam: normal ENT inspection Neck Exam: normal inspection Respiratory Exam: normal breath sounds, lungs clear Cardiovascular Exam: regular rate/rhythm, normal heart sounds Gastrointestinal/Abdomen Exam: soft, normal bowel sounds Pelvic Exam: deferred Rectal Exam: deferred Back Exam: normal inspection Extremity Exam: swelling (BLE edema 2+ pitting) Final Diagnosis/Problem List - Final Discharge Diagnosis/Problem (1) Diverticulitis Current Visit: Yes Status: Acute Code(s): K57.92 - DVTRCLI OF INTEST, PART UNSP, W/O PERF OR ABSCESS W/O BLEED (2) Edema due to hypoalbuminemia Current Visit: Yes Status: Acute Code(s): E88.09 - OTH DISORDERS OF PLASMA- PROTEIN METABOLISM, NEC (3) UTI (urinary tract infection) Current Visit: Yes Status: Acute Code(s): N39.0 - URINARY TRACT INFECTION, SITE NOT SPECIFIED (4) Hyponatremia Current Visit: Yes Status: Acute Code(s): E87.1 - HYPO-OSMOLALITY AND HYPONATREMIA (5) Dizziness Current Visit: Yes Status: Acute Code(s): R42 - DIZZINESS AND GIDDINESS (6) Ulcerative colitis Current Visit: Yes Status: Acute Code(s): K51.90 - ULCERATIVE COLITIS, UNSPECIFIED, WITHOUT COMPLICATIONS (7) Anemia Current Visit: Yes Status: Chronic Code(s): D64.9 - ANEMIA, UNSPECIFIED (8) Decubitus ulcer of coccyx, stage 2 Current Visit: Yes Status: Chronic Code(s): L89.152 - PRESSURE ULCER OF SACRAL REGION, STAGE 2 (9) Hypokalemia due to excessive gastrointestinal loss of potassium Current Visit: No Status: Acute Code(s): E87.6 - HYPOKALEMIA (10) Urinary tract infection Current Visit: No Status: Acute Code(s): N39.0 - URINARY TRACT INFECTION, SITE NOT SPECIFIED (11) Metabolic acidosis Current Visit: No Status: Resolved Code(s): E87.20 - ACIDOSIS, UNSPECIFIED - Discharge Discharge Date: 08/14/24 Disposition: DC TO ANY "OTHER" CARE HOME Condition: Stable Prescriptions: New Dextrose 50%-Water Syringe [D50W 50 ml Abboject] 25 ml IV PRN PRN PRN Reason: Hypoglycemia Glucagon 1 mg [GlucaGen 1 MG] 1 mg IM PRN PRN PRN Reason: Hypoglycemia Dextrose 15 gm Oral Gel [Glutose 15 GM ORAL GEL] 15 gm PO PRN PRN PRN Reason: Hypoglycemia Simethicone 80 mg [Mylicon 80MG] 80 mg PO QID PRN PRN tablet PRN Reason: Gas Bismuth Subsalicylate [Pepto-Bismol] 524 mg PO Q3H/PRN PRN PRN Reason: Diarrhea Ceftriaxone Sodium [ROCEPHIN 1 GM / 100 ML NaCl] 1 gm IV Q24H22 iv piggy Methylprednisolone Sod Suc 40M [solu-MEDROL] 40 mg IV BID Continue Metformin HCl [Metformin ER Gastric] 1,000 mg PO BID Glimepiride 2 mg [Amaryl 2 MG] 2 mg PO DAILY Fenofibrate [Lipofen] 145 mg PO DAILY Duloxetine HCl 30 mg [Cymbalta 30 MG Capsule] 30 mg PO DAILY Ferrous Sulfate 325 mg [Feosol 325 mg] 325 mg PO DAILY tablet Acetaminophen 325 mg [Tylenol 325 mg] 650 mg PO Q4H PRN PRN tablet PRN Reason: Pain, Fever, Headache Cholestyramine Light 4 gm [QUESTRAN Light 4 GM Packet] 4 gm PO DAILY Cholecalciferol (Vitamin D3) [Vitamin D] 1,000 unit PO DAILY Ascorbic Acid 500 mg [Vitamin C 500 MG] 500 mg PO BID Apixaban [Eliquis] 5 mg PO BID Clotrimazole [Clotrimazole AF] See Rx Instructions .ROUTE .COMPLEX ALPRAZolam 0.25 MG [xanAX 0.25 MG] 0.25 mg PO Q4H PRN PRN PRN Reason: Anxiety Dicyclomine HCl 20 mg [Bentyl 20 mg] 20 mg PO QID Potassium Chloride Tab* [Klor Con] 10 meq PO DAILY Ondansetron ODT 4 MG [Zofran Odt 4 mg] 4 mg PO Q4H PRN PRN PRN Reason: Nausea Prednisone 20 mg [Deltasone 20 mg] 40 mg PO DAILY Oxycodone HCl 5 mg PO Q4H PRN PRN PRN Reason: Pain Psyllium Packet [Metamucil PACKET] 1 packet PO DAILY L.acidoph,Paracasei, B.lactis [Probiotic] 1 cap PO DAILY Omeprazole 20 mg PO DAILY Furosemide 20 mg [Lasix 20 mg] 20 mg PO DAILY Insulin Lispro See Rx Instructions .ROUTE .COMPLEX Dextrose [Glucose] 16 g PO UD Bismuth Subsalicylate [Pepto-Bismol] 524 mg PO Q3H/PRN PRN PRN Reason: Diarrhea Discontinued Diphenoxylate HCl/Atropine [Lomotil 2.5-0.025 mg Tablet] 2 tab PO BID Follow up with: KAITLYN MCKEON OF [Primary Care Provider] -
--- NOTE | 2024-08-15 05:18 | PCM.DS ---
Discharge Summary Date of Admission: 08/12/24 11:05 Date of Discharge: 08/15/24 Admitting Physician: ATILIO SARABIA MD Consults: Consults on Case 08/12/24 14:30 Nutritional Consult ROUTINE 08/12/24 14:47 Notify Physician ROUTINE Primary Care Provider: [facility] Allergies Allergies sulfamethoxazole [From Bactrim] Allergy (Verified 08/10/24 12:47) trimethoprim [From Bactrim] Allergy (Verified 08/10/24 12:47) meperidine HCl [From Demerol] Adverse Reaction (Mild, Verified 08/10/24 12:47) [facility] Summary - Hospital Course Hospital Course: Hospital Course: is a 74 year old female with a history of diabetes mellitus, left upper extremity DVT (on Eliquis), and colitis (for which patient was initially seen here at [facility] and later on at [facility] and was scheduled to have colonoscopy and CT angiogram abdomen pelvis, with questionable ulcerative vs ischemic colitis still having diarrhea 2-3 times a day currently at [facility]). On 08/10 she was brought to the hospital because she was lying in the bed and started to feel lightheaded and near syncopal, with drop of blood pressure in 70s, heart rate in low 50s. The patient has had bilateral 3+ pitting edema in both legs which is progressively worsening. Patient has almost 30 pounds weight loss in the last 3 months since her diarrhea and colitis symptoms started. She denied fever or chills. The patient also has a coccyx wound which seems to be healing and with no drainage, currently under care of wound management at her facility. In the ED, the patient received IV fluids with an improvement in her BP. Workup demonstrated leukocytosis, hypomagnesemia, a lactic acidosis, and colitis on CT scan. IV antibiotics were administered. She states that her diarrhea is overall improved over the past several weeks, but is persistent. The plan is for repeat colonoscopy with Dr. Virginia Goddard next week and considering colostomy placement. CTA abdomen shows diverticulitis. IP treatment initially with Zosyn and changed to Ceftriaxone 09/05. Per documentation from [place], patient diagnosed with ulcerative colitis. IV steroids have been initiated. Patient has also received 2 units of albumin for hypoalbuminemia. Venous duplex of BLLE and BLUE to be done Wednesday. Pt states she is frustrated as she is going 4 months of being ill. Ucult with enterobacter with sensitivity to Ceftriaxone. Symptoms have not improved. Will transfer to higher level of care with GI specialty. Discharge Note Latest Assessment & Plan 1) Diverticulitis Current Visit: Yes Status: Acute Assessment & Plan: - Call out to Dr. Hess with GI at [place] - Planned repeat colonoscopy next week () with GI In [place]- will possibly need colostomy. - Antimicrobial history: - Zosyn - discontinued 08/13/24 -Ceftriaxone started 08/13/24 - Abd CT/Pelvis reviewed demonstrating diffuse sigmoid diverticulitis - patient with diagnosis of UC - BC x2 negative - CBC, CMP reviewed - WBC WNL at 4.3 Code(s): K57.92 - DVTRCLI OF INTEST, PART UNSP, W/O PERF OR ABSCESS W/O BLEED (2) Edema due to hypoalbuminemia Current Visit: Yes Status: Acute Assessment & Plan: -Received 5 units of albumin -albumin level reviewed at 1.6>1.5 - Nutrition consult Code(s): E88.09 - OTH DISORDERS OF PLASMA-PROTEIN METABOLISM, NEC (3) UTI (urinary tract infection) Current Visit: Yes Status: Acute Assessment & Plan: - UC enterobactor- continue ceftriaxone Code(s): N39.0 - URINARY TRACT INFECTION, SITE NOT SPECIFIED (4) Hyponatremia Current Visit: Yes Status: Acute Assessment & Plan: - In the setting of Hypervolemia - continue diruetics and continue to monitor Code(s): E87.1 - HYPO-OSMOLALITY AND HYPONATREMIA (5) Dizziness Current Visit: Yes Status: Acute Assessment & Plan: - TEDS - PT eval Code(s): R42 - DIZZINESS AND GIDDINESS (6) Ulcerative colitis Current Visit: Yes Status: Acute Assessment & Plan: - Records from [place] reviewed with confirmed dx -Call made to GI- awaiting return call - IV steroids - Consider tx to [place] for GI Code(s): K51.90 - ULCERATIVE COLITIS, UNSPECIFIED, WITHOUT COMPLICATIONS (7) Anemia Current Visit: Yes Status: Chronic Assessment & Plan: - iron def. anemia - continue ferrous sulfate -Hgb reviewed at 7.1 Code(s): D64.9 - ANEMIA, UNSPECIFIED (8) Decubitus ulcer of coccyx, stage 2 Current Visit: Yes Status: Chronic Assessment & Plan: - PT eval wound therapy consult and treat - Prostat 64 - nutrition consult Code(s): L89.152 - PRESSURE ULCER OF SACRAL REGION, STAGE 2 (9) Hypokalemia due to excessive gastrointestinal loss of potassium Current Visit: No Status: Acute Assessment & Plan: - tele -Replenish per protocol -potassium reviewed at 3.8 - resolved -continue potassium supplementation Code(s): E87.6 - HYPOKALEMIA (10) Urinary tract infection Current Visit: No Status: Acute Assessment & Plan: - UC enterobactor- continue ceftriaxone Code(s): N39.0 - URINARY TRACT INFECTION, SITE NOT SPECIFIED (11) Metabolic acidosis Current Visit: No Status: Resolved Assessment & Plan: - resolved - co2 reviewed at 23 - Vitals & Intake/Output Vital Signs: Vital Signs Temperature 96.7 F 08/15/24 03:00 Pulse Rate 70 08/15/24 03:00 Respiratory Rate 18 08/15/24 04:00 Blood Pressure 103/60 08/15/24 03:00 O2 Sat by Pulse Oximetry 96 08/15/24 03:00 Intake & Output: Intake & Output 08/12/24 08/13/24 08/14/24 08/15/24 11:59 11:59 11:59 11:59 Intake Total 2997 4029 1818 340 Balance 2997 4029 1818 340 - Lab Result Diagrams: 08/15/24 07:53 08/14/24 04:30 Lab Results-Last 24 Hrs: Lab Results-Last 24 Hours 08/14/24 08/14/24 08/14/24 Range/Units 04:30 04:30 04:30 WBC 4.3 (3.98-10.04) x10^3/uL RBC 2.48 L (3.93-5.22) x10^6/uL Hgb 7.1 L (11.2-15.7) g/dL Hct 22.7 L (34.1-44.9) % MCV 91.5 (79.4-94.8) fL MCH 28.6 (25.6-32.2) pg MCHC 31.3 L (32.2-35.5) g/dL RDW 18.0 H (11.7-14.4) % Plt Count 163 L (182-369) x10^3/uL MPV 9.5 (9.4-12.3) fL Sodium 134 L (135-145) mmol/L Potassium 3.8 (3.5-5.1) mmol/L Chloride 106 (98-107) mmol/L Carbon Dioxide 23 (22-30) mmol/L Anion Gap 9.0 (5-15) MEQ/L BUN 12 (7-17) mg/dL Creatinine 0.36 L (0.52-1.04) mg/dL Estimated GFR 105.8 ML/MIN Glucose 189 H (74-106) mg/dL POC Glucometer (74 to 106) mg/dL Calcium 6.6 L (8.4-10.2) mg/dL Magnesium 1.6 (1.6-2.3) mg/dL Total Bilirubin 0.20 (0.2-1.3) mg/dL AST 18 (14-36) U/L ALT 18 (0-35) U/L Alkaline Phosphatase 96 (38-126) U/L Serum Total Protein 3.6 L (6.3-8.2) g/dL Albumin 1.6 L (3.5-5.0) g/dL 08/14/24 08/14/24 08/14/24 Range/Units 07:44 11:57 17:39 WBC (3.98-10.04) x10^3/uL RBC (3.93-5.22) x10^6/uL Hgb (11.2-15.7) g/dL Hct (34.1-44.9) % MCV (79.4-94.8) fL MCH (25.6-32.2) pg MCHC (32.2-35.5) g/dL RDW (11.7-14.4) % Plt Count (182-369) x10^3/uL MPV (9.4-12.3) fL Sodium (135-145) mmol/L Potassium (3.5-5.1) mmol/L Chloride (98-107) mmol/L Carbon Dioxide (22-30) mmol/L Anion Gap (5-15) MEQ/L BUN (7-17) mg/dL Creatinine (0.52-1.04) mg/dL Estimated GFR ML/MIN Glucose (74-106) mg/dL POC Glucometer 147 H 217 H 270 H (74 to 106) mg/dL Calcium (8.4-10.2) mg/dL Magnesium (1.6-2.3) mg/dL Total Bilirubin (0.2-1.3) mg/dL AST (14-36) U/L ALT (0-35) U/L Alkaline Phosphatase (38-126) U/L Serum Total Protein (6.3-8.2) g/dL Albumin (3.5-5.0) g/dL 08/14/24 Range/Units 21:24 WBC (3.98-10.04) x10^3/uL RBC (3.93-5.22) x10^6/uL Hgb (11.2-15.7) g/dL Hct (34.1-44.9) % MCV (79.4-94.8) fL MCH (25.6-32.2) pg MCHC (32.2-35.5) g/dL RDW (11.7-14.4) % Plt Count (182-369) x10^3/uL MPV (9.4-12.3) fL Sodium (135-145) mmol/L Potassium (3.5-5.1) mmol/L Chloride (98-107) mmol/L Carbon Dioxide (22-30) mmol/L Anion Gap (5-15) MEQ/L BUN (7-17) mg/dL Creatinine (0.52-1.04) mg/dL Estimated GFR ML/MIN Glucose (74-106) mg/dL POC Glucometer 267 H (74 to 106) mg/dL Calcium (8.4-10.2) mg/dL Magnesium (1.6-2.3) mg/dL Total Bilirubin (0.2-1.3) mg/dL AST (14-36) U/L ALT (0-35) U/L Alkaline Phosphatase (38-126) U/L Serum Total Protein (6.3-8.2) g/dL Albumin (3.5-5.0) g/dL Micro Results-Entire Visit: Microbiology 08/10/24 14:24 Urine Culture - Final Urine, Catheterized Enterobacter Clocae Complex 08/10/24 13:28 Blood Culture - Preliminary Blood 08/10/24 13:20 Blood Culture - Preliminary Blood Accuchecks Date 08/14/24 Date 08/14/24 Date 08/14/24 Date 08/14/24 Time 21:30 Time 18:19 Time 12:14 Time 08:02 - Procedures and Test Procedures and Tests throughout Hospitalization: Therapy Orders & Screens 08/10/24 19:38 PT Eval & Treat ( Order) ONCE Reason for Eval:: dizziness, and wound care Diagnosis: Sigmoid colitis, sepsis, hypomagnesemia Discharge Exam General Appearance: no apparent distress Neurologic Exam: alert, oriented x 3, cooperative Eye Exam: PERRL Ears, Nose, Throat Exam: normal ENT inspection Neck Exam: normal inspection Respiratory Exam: normal breath sounds, lungs clear Cardiovascular Exam: regular rate/rhythm, normal heart sounds Gastrointestinal/Abdomen Exam: soft, normal bowel sounds Pelvic Exam: deferred Rectal Exam: deferred Back Exam: normal inspection Extremity Exam: swelling (BLE +2 pitting) Final Diagnosis/Problem List - Final Discharge Diagnosis/Problem (1) Diverticulitis Current Visit: Yes Status: Acute Code(s): K57.92 - DVTRCLI OF INTEST, PART UNSP, W/O PERF OR ABSCESS W/O BLEED (2) Edema due to hypoalbuminemia Current Visit: Yes Status: Acute Code(s): E88.09 - OTH DISORDERS OF PLASMA- PROTEIN METABOLISM, NEC (3) UTI (urinary tract infection) Current Visit: Yes Status: Acute Code(s): N39.0 - URINARY TRACT INFECTION, SITE NOT SPECIFIED (4) Hyponatremia Current Visit: Yes Status: Acute Code(s): E87.1 - HYPO-OSMOLALITY AND HYPONATREMIA (5) Dizziness Current Visit: Yes Status: Acute Code(s): R42 - DIZZINESS AND GIDDINESS (6) Ulcerative colitis Current Visit: Yes Status: Acute Code(s): K51.90 - ULCERATIVE COLITIS, UNSPECIFIED, WITHOUT COMPLICATIONS (7) Anemia Current Visit: Yes Status: Chronic Code(s): D64.9 - ANEMIA, UNSPECIFIED (8) Decubitus ulcer of coccyx, stage 2 Current Visit: Yes Status: Chronic Code(s): L89.152 - PRESSURE ULCER OF SACRAL REGION, STAGE 2 (9) Hypokalemia due to excessive gastrointestinal loss of potassium Current Visit: No Status: Acute Code(s): E87.6 - HYPOKALEMIA (10) Urinary tract infection Current Visit: No Status: Acute Code(s): N39.0 - URINARY TRACT INFECTION, SITE NOT SPECIFIED (11) Metabolic acidosis Current Visit: No Status: Resolved Code(s): E87.20 - ACIDOSIS, UNSPECIFIED - Discharge Discharge Date: 08/15/24 Disposition: DC TO ANY "OTHER" P[facility]ENTIARY Condition: Stable Prescriptions: New Dextrose 50%-Water Syringe [D50W 50 ml Abboject] 25 ml IV PRN PRN PRN Reason: Hypoglycemia Glucagon 1 mg [GlucaGen 1 MG] 1 mg IM PRN PRN PRN Reason: Hypoglycemia Dextrose 15 gm Oral Gel [Glutose 15 GM ORAL GEL] 15 gm PO PRN PRN PRN Reason: Hypoglycemia Simethicone 80 mg [Mylicon 80MG] 80 mg PO QID PRN PRN tablet PRN Reason: Gas Bismuth Subsalicylate [Pepto-Bismol] 524 mg PO Q3H/PRN PRN PRN Reason: Diarrhea Ceftriaxone Sodium [ROCEPHIN 1 GM / 100 ML NaCl] 1 gm IV Q24H22 iv piggy Methylprednisolone Sod Suc 40M [solu-MEDROL] 40 mg IV BID Continue Metformin HCl [Metformin ER Gastric] 1,000 mg PO BID Glimepiride 2 mg [Amaryl 2 MG] 2 mg PO DAILY Fenofibrate [Lipofen] 145 mg PO DAILY Duloxetine HCl 30 mg [Cymbalta 30 MG Capsule] 30 mg PO DAILY Ferrous Sulfate 325 mg [Feosol 325 mg] 325 mg PO DAILY tablet Acetaminophen 325 mg [Tylenol 325 mg] 650 mg PO Q4H PRN PRN tablet PRN Reason: Pain, Fever, Headache Cholestyramine Light 4 gm [QUESTRAN Light 4 GM Packet] 4 gm PO DAILY Cholecalciferol (Vitamin D3) [Vitamin D] 1,000 unit PO DAILY Ascorbic Acid 500 mg [Vitamin C 500 MG] 500 mg PO BID Apixaban [Eliquis] 5 mg PO BID Clotrimazole [Clotrimazole AF] See Rx Instructions .ROUTE .COMPLEX ALPRAZolam 0.25 MG [xanAX 0.25 MG] 0.25 mg PO Q4H PRN PRN PRN Reason: Anxiety Dicyclomine HCl 20 mg [Bentyl 20 mg] 20 mg PO QID Potassium Chloride Tab* [Klor Con] 10 meq PO DAILY Ondansetron ODT 4 MG [Zofran Odt 4 mg] 4 mg PO Q4H PRN PRN PRN Reason: Nausea Prednisone 20 mg [Deltasone 20 mg] 40 mg PO DAILY Oxycodone HCl 5 mg PO Q4H PRN PRN PRN Reason: Pain Psyllium Packet [Metamucil PACKET] 1 packet PO DAILY L.acidoph,Paracasei, B.lactis [Probiotic] 1 cap PO DAILY Omeprazole 20 mg PO DAILY Furosemide 20 mg [Lasix 20 mg] 20 mg PO DAILY Insulin Lispro See Rx Instructions .ROUTE .COMPLEX Dextrose [Glucose] 16 g PO UD Bismuth Subsalicylate [Pepto-Bismol] 524 mg PO Q3H/PRN PRN PRN Reason: Diarrhea Discontinued Diphenoxylate HCl/Atropine [Lomotil 2.5-0.025 mg Tablet] 2 tab PO BID Follow up with: KAITLYN MCKEON OF [Primary Care Provider] -
[2024-08-15 07:28] VITALS: BP 125/58; PULSE 65; RESP 16; TEMP 98.1; O2SAT 95
[2024-08-15 07:56] LABS: Absolute Neutrophil Ct (ANC) 3.45 x10^3/uL (1.56-6.13); Basophil (Absolute #) 0 x10^3/uL (0.01-0.08); Eosinophil (Absolute #) 0 x10^3/uL (0.04-0.36); Hematocrit 25.2 % (34.1-44.9); Hemoglobin 7.9 g/dL (11.2-15.7); IMMATURE GRAN # 0.03 x10^3u/L (0.001-0.031); IMMATURE GRAN % 0.6 % (0.001-0.429); Lymphocyte (Absolute #) 1.35 x10^3/uL (1.18-3.74); Mean Cell Volume 92.3 fL (79.4-94.8); Mean Corpuscular Hemoglobin 28.9 pg (25.6-32.2); Mean Corpuscular Hgb Concent. 31.3 g/dL (32.2-35.5); Mean Platelet Volume 9.2 fL (9.4-12.3); Monocyte (Absolute #) 0.37 x10^3/uL (0.24-0.86); Monocytes % 7.1 % (4.7-12.5); Neutrophil % 66.3 % (34.0-71.1); Platelet Count 182 x10^3/uL (182-369); Red Blood Count 2.73 x10^6/uL (3.93-5.22); Red Cell Distribution Width 18.4 % (11.7-14.4); White Blood Count 5.2 x10^3/uL (3.98-10.04)
[2024-08-15 08:10] LABS: ALBUMIN 1.7 g/dL (3.5-5.0); ANION GAP 7.1 MEQ/L (5-15); BILIRUBIN,TOTAL 0.3 mg/dL (0.2-1.3); Calcium 7.1 mg/dL (8.4-10.2); Creatinine 1 0.36 mg/dL (0.52-1.04); EST GLOMERULAR FILTRATION RATE 105.8 ML/MIN; Potassium 4.3 mmol/L (3.5-5.1); Total Protein 3.9 g/dL (6.3-8.2)
== END 2024-08-15 08:25 | disposition short-term general hospital (02) | DRG 392 ==
LOC: ED 12:43 → MED SURG 18:07 → OBSVTOIN 08-12 11:05
PROVIDERS: ADMIT Internal Medicine; ATTEND Internal Medicine
DX: K57.92 Diverticulitis of intestine, part unspecified, without perforation or abscess without bleeding (principal); N39.0 Urinary tract infection, site not specified; E87.1 Hypo-osmolality and hyponatremia; K51.90 Ulcerative colitis, unspecified, without complications; E87.20 Acidosis, unspecified; E88.09 Other disorders of plasma-protein metabolism, not elsewhere classified; R60.0 Localized edema; R42 Dizziness and giddiness; D64.9 Anemia, unspecified; L89.152 Pressure ulcer of sacral region, stage 2; E87.6 Hypokalemia; E11.9 Type 2 diabetes mellitus without complications; E78.5 Hyperlipidemia, unspecified; F41.9 Anxiety disorder, unspecified; E83.42 Hypomagnesemia; Z79.01 Long term (current) use of anticoagulants; Z86.718 Personal history of other venous thrombosis and embolism; Z79.899 Other long term (current) drug therapy
CPT/HCPCS: 36415; 71045; 74174; 80053; 81001; 82607; 82728; 82746; 82947; 83540; 83550; 83605; 83735; 83880; 84484; 85014; 85018; 85025; 85027; 87040; 87077; 87086; 87186; 87493; 93005; 93268; 93970; 96365; 96374; 96375; 99285; J0696; J1817; J2405; J2919; J3475; J3480; P9047; Q0162; Q3014; A9270-GY; G0378

== ENCOUNTER 2024-10-06 10:08 | Emergency (ER) | payer MEDICARE, OTHER ==
[2024-10-06 10:13] VITALS: TEMP 98.4
--- NOTE | 2024-10-06 10:54 | ERPHSYRPT ---
- History of Present Illness Time Seen by Provider: 10/06/24 10:15 Source: patient Exam Limitations: no limitations Patient Subjective Stated Complaint: pt was at the infusion center getting her third infusion of Remecade when she suddenly became short of breath with her O2 going into the 70's and flushed, by the time the nurses brought her to the ER she was back to her baseline Triage Nursing Assessment: Pt brought to the ER by the infusion center, vitals wnl, rates abdominal pain as 4/10, pulses normal, skin n/w/d, denies any reaction to the Remecade in previous infusions, no difficulty breathing at this time, denies chest pain, denies tongue swelling or throat itching, pt does have a wound vac for an ulcer that is almost healed, doesn't appear to be in any distress Physician History: This is a 74-year-old white female patient who arrives from the infusion clinic. Patient's primary care provider is nurse anastacia Burgos. Patient was in the process of receiving her third dose of Remicade (infliximab). Soon after the infusion began she had symptoms of fever, shortness of breath and skin of her face turned red. They did not have any orders to treat an infusion reaction or allergic reaction so they at the infusion clinic, sent the patient to the emergency department. Patient was receiving this medication to treat ulcerative colitis/irritable bowel syndrome per the patient report. Patient has had no prior reactions to this medication. Patient's symptoms have nearly cleared. Patient has a history of diabetes, also colitis, DVT (on Eliquis) coccygeal decubitus ulcer, gastroesophageal reflux disease, anxiety/depression. She currently denies abdominal pain. She denies chest pain. She currently has no shortness of breath. Timing/Duration: today Severity: mild (To moderate) Modifying Factors: Improves With: nothing Associated Symptoms: shortness of breath (Now resolved), fever (Now resolved) Allergies/Adverse Reactions: sulfamethoxazole [From Bactrim] Allergy (Verified 10/06/24 10:23) pt not sure of allergy trimethoprim [From Bactrim] Allergy (Verified 10/06/24 10:23) meperidine HCl [From Demerol] Adverse Reaction (Mild, Verified 10/06/24 10:23) Lightheadedness Home Medications: Fenofibrate [Lipofen] 145 mg PO DAILY 09/24/23 [History] Glimepiride 2 mg [Amaryl 2 MG] 2 mg PO DAILY 09/24/23 [History] Metformin HCl [Metformin ER Gastric] 1,000 mg PO BID 09/24/23 [History] Duloxetine HCl 30 mg [Cymbalta 30 MG Capsule] 30 mg PO DAILY 05/23/24 [History] ALPRAZolam 0.25 MG [xanAX 0.25 MG] 0.25 mg PO Q4H PRN PRN 08/10/24 [History] Apixaban [Eliquis] 5 mg PO BID 08/10/24 [History] Ascorbic Acid 500 mg [Vitamin C 500 MG] 500 mg PO BID 08/10/24 [History] Cholecalciferol (Vitamin D3) [Vitamin D] 1,000 unit PO DAILY 08/10/24 [History] Cholestyramine Light 4 gm [QUESTRAN Light 4 GM Packet] 4 gm PO DAILY 08/10/24 [History] Dicyclomine HCl 20 mg [Bentyl 20 mg] 20 mg PO QID 08/10/24 [History] Furosemide 20 mg [Lasix 20 mg] 20 mg PO DAILY 08/10/24 [History] Insulin Lispro See Rx Instructions .ROUTE .COMPLEX 08/10/24 [History] Omeprazole 20 mg PO DAILY 08/10/24 [History] Ondansetron ODT 4 MG [Zofran Odt 4 mg] 4 mg PO Q4H PRN PRN 08/10/24 [History] Oxycodone HCl 5 mg PO Q4H PRN PRN 08/10/24 [History] Potassium Chloride Tab* [Klor Con] 10 meq PO DAILY 08/10/24 [History] Prednisone 20 mg [Deltasone 20 mg] 30 mg PO DAILY 08/10/24 [History] Arginine/Glutamine/Calcium Bmb [Julio Packet] 1 packet PO BID 09/22/24 [History] Guaifenesin 600 mg ER [Mucinex 600MG ER Tabs] 1,200 mg PO BID PRN 09/22/24 [History] Insulin Glargine,Hum.rec.anlog [Lantus] 10 units SQ HS 09/22/24 [History] Loperamide HCl 2 mg [Imodium 2 mg] 1 tab PO DAILY PRN PRN 09/22/24 [History] Melatonin 1 tab PO HS 09/22/24 [History] Multivitamin with Folic Acid [Multiple Vitamin Tablet] 1 tab PO DAILY 09/22/24 [History] Nystatin Powder 15 gm [Nystop Powder 15 gm] 1 gm TOP BID PRN 09/22/24 [History] Trazodone HCl 25 mg PO HS 09/22/24 [History] Hx Tetanus, Diphtheria Vaccination/Date Given: Yes Hx Influenza Vaccination/Date Given: No Hx Pneumococcal Vaccination/Date Given: No Travel Risk - International Travel Have you traveled outside of the country in past 3 weeks: No - Emerging Infectious Disease Are you exhibiting symptoms associated with any current EIDs: No Symptoms: Diarrhea Comment: Dx: Collitis. intermediate reports negative for C-diff - Review of Systems Constitutional: Fever Eyes: No Symptoms Ears, Nose, & Throat: No Symptoms Respiratory: No Symptoms, Dyspnea (Now resolved) Cardiac: No Symptoms Abdominal/Gastrointestinal: No Symptoms Genitourinary Symptoms: No Symptoms Musculoskeletal: No Symptoms Skin: Other (Facial redness has nearly dissipated) Neurological: No Symptoms Psychological: No Symptoms Endocrine: No Symptoms Hematologic/Lymphatic: No Symptoms Immunological/Allergic: No Symptoms All Other Systems: Reviewed and Negative - Past Medical History Pertinent Past Medical History: Yes Neurological History: No Pertinent History ENT History: No Pertinent History Cardiac History: High Cholesterol Respiratory History: No Pertinent History Endocrine Medical History: Diabetes Type II Musculoskeletal History: No Pertinent History GI Medical History: Colitis, Polyps History: No Pertinent History Psycho-Social History: Anxiety, Depression Female Reproductive Disorders: No Pertinent History Other Medical History: DVT to LUE, thrombophilia, anemia, hyperlipidemia, hypo- osmolality and hyponatremia - Past Surgical History Past Surgical History: Yes Neuro Surgical History: No Pertinent History Cardiac: No Pertinent History Respiratory: No Pertinent History Gastrointestinal: No Pertinent History Genitourinary: No Pertinent History Musculoskeletal: Orthopedic Surgery Female Surgical History: Hysterectomy Other Surgical History: knee surgery for shattered knee cap Significant Family History: no pertinent family hx - Social History Smoking Status: Never smoker Exposure to second hand smoke: No Drug Use: none - Social Determinants of Health Will the patient participate in the screening: Yes Do you worry about a steady place to live?: No Do you have any problems with any of the following?: No known problems In the past 12 months,have you had to go without utilities?: No Transportation Issues: No Has anyone in your support network made you feel unsafe?: No Have you or anyone in your house had to go w/o enough food: No Comment: Currently resides at [facility] - Nursing Vital Signs Nursing Vital Signs: Initial Vital Signs Temperature 98.4 F 10/06/24 10:11 Pulse Rate 97 H 10/06/24 10:11 Respiratory Rate 18 10/06/24 10:11 Blood Pressure 121/69 10/06/24 10:11 O2 Sat by Pulse Oximetry 95 10/06/24 10:11 Pain Scale Pain Intensity 4 - Physical Exam General Appearance: no apparent distress, alert, anxiety Eye Exam: PERRL/EOMI, eyes nml inspection Ears, Nose, Throat Exam: normal ENT inspection, moist mucous membranes Neck Exam: normal inspection, non-tender, supple, full range of motion Respiratory Exam: normal breath sounds, lungs clear, airway intact, No chest tenderness, No respiratory distress Cardiovascular Exam: regular rate/rhythm, normal heart sounds, normal peripheral pulses Gastrointestinal/Abdomen Exam: soft, normal bowel sounds, No tenderness Pelvic Exam: not done Rectal Exam: not done Back Exam: normal inspection, normal range of motion, No CVA tenderness Extremity Exam: normal inspection, normal range of motion, pelvis stable Neurologic Exam: alert, oriented x 3, cooperative, regional clinical director II-XII nml as tested, normal mood/affect, nml cerebellar function, nml station & gait, sensation nml Skin Exam: normal color, warm, dry Lymphatic Exam: No adenopathy SpO2 Interpretation: normal SpO2: 95 O2 Delivery: Room Air - Course Nursing assessment & vital signs reviewed: Yes Ordered Tests: Active Orders 24 hr Category Date Time Status IV Insertion STAT Care 10/06/24 10:31 Active Pulse Oximetry (ED) STAT Care 10/06/24 10:31 Active CBC W DIFF Stat Lab 10/06/24 11:00 Completed CMP Stat Lab 10/06/24 11:00 Completed Medication Summary Discontinued Medications Generic Name Dose Route Start Last Admin Trade Name Freq PRN Reason Stop Dose Admin Acetaminophen 650 mg 10/06/24 10:32 10/06/24 11:13 Acetaminophen 325 Mg Tablet PO 10/06/24 10:33 650 mg STAT STA Administration Acetaminophen Confirm 10/06/24 11:06 Acetaminophen 325 Mg Tablet Administered 10/06/24 11:07 Dose 650 mg .ROUTE .STK-MED ONE Methylprednisolone Sodium 0 mg 10/06/24 10:31 10/06/24 11:14 Succinate 125 mg/ Sterile IV 10/06/24 10:32 125 mg Water 2 ml STAT ONE Administration Diphenhydramine HCl 50 mg 10/06/24 10:31 10/06/24 11:14 Diphenhydramine Hcl 50 Mg/Ml Vial IV 10/06/24 10:32 50 mg STAT ONE Administration Diphenhydramine HCl Confirm 10/06/24 11:06 Diphenhydramine Hcl 50 Mg/Ml Vial Administered 10/06/24 11:07 Dose 50 mg .ROUTE .STK-MED ONE Famotidine 40 mg 10/06/24 10:31 10/06/24 11:14 Famotidine 20 Mg/1 Vial IV 10/06/24 10:32 40 mg STAT ONE Administration Famotidine Confirm 10/06/24 11:06 Famotidine 20 Mg/1 Vial Administered 10/06/24 11:07 Dose 40 mg IV .STK-MED ONE Methylprednisolone Sodium Succinate Confirm 10/06/24 11:07 Methylprednis Sod Succ 125 Mg/2 Ml Vial Administered 10/06/24 11:08 Dose 125 mg .ROUTE .STK-MED ONE Ondansetron HCl 4 mg 10/06/24 10:32 10/06/24 11:14 Ondansetron Hcl 4 Mg/2 Ml Vial IV 10/06/24 10:33 4 mg STAT ONE Administration Ondansetron HCl Confirm 10/06/24 11:06 Ondansetron Hcl 4 Mg/2 Ml Vial Administered 10/06/24 11:07 Dose 4 mg .ROUTE .STK-MED ONE Sterile Water Confirm 10/06/24 11:06 Water For Injection,Sterile 10 Ml Vial Administered 10/06/24 11:07 Dose 10 ml IJ .STK-MED ONE Lab/Rad Data: Laboratory Result Diagrams 10/06/24 11:00 10/06/24 11:00 Laboratory Results 10/06/24 10/06/24 Range/Units 11:00 11:00 WBC 6.1 (3.98-10.04) x10^3/uL RBC 3.96 (3.93-5.22) x10^6/uL Hgb 11.3 (11.2-15.7) g/dL Hct 37.1 (34.1-44.9) % MCV 93.7 (79.4-94.8) fL MCH 28.5 (25.6-32.2) pg MCHC 30.5 L (32.2-35.5) g/dL RDW 15.2 H (11.7-14.4) % Plt Count 274 (182-369) x10^3/uL MPV 8.4 L (9.4-12.3) fL Gran % 71.9 H (34.0-71.1) % Immature Gran % (Auto) 1.5 H (0.001-0.429) % Nucleat RBC Rel Count 0.0 (0.00-0.2) % Eos # (Auto) 0.02 L (0.04-0.36) x10^3/uL Immature Gran # (Auto) 0.09 H (0.001-0.031) x10^3u/L Absolute Lymphs (auto) 1.44 (1.18-3.74) x10^3/uL Absolute Monos (auto) 0.15 L (0.24-0.86) x10^3/uL Absolute Nucleated RBC 0.00 (0.00-0.012) x10^3u/L Lymphocytes % 23.5 (19.3-51.7) % Monocytes % 2.5 L (4.7-12.5) % Eosinophils % 0.3 L (0.7-5.8) % Basophils % 0.3 (0.1-1.2) % Absolute Granulocytes 4.40 (1.56-6.13) x10^3/uL Basophils # 0.02 (0.01-0.08) x10^3/uL Sodium 137 (135-145) mmol/L Potassium 4.3 (3.5-5.1) mmol/L Chloride 105 (98-107) mmol/L Carbon Dioxide 22 (22-30) mmol/L Anion Gap 13.8 (5-15) MEQ/L BUN 27 H (7-17) mg/dL Creatinine 0.59 (0.52-1.04) mg/dL Estimated GFR 93.9 ML/MIN Glucose 357 H (74-106) mg/dL Calcium 8.6 (8.4-10.2) mg/dL Total Bilirubin 0.40 (0.2-1.3) mg/dL AST 20 (14-36) U/L ALT 17 (0-35) U/L Alkaline Phosphatase 67 (38-126) U/L Serum Total Protein 6.6 (6.3-8.2) g/dL Albumin 3.7 (3.5-5.0) g/dL - Progress Progress: improved Progress Note: 10/06/24 10:53 My medical decision making and the assignment of moderate complexity to this patient's medical issue today is based on review of the patient's past medical history, review the patient's medication list, reviewed patient drug allergy list, history present illness and physical findings on examination. The workup in this patient includes placement of a intravenous line, CBC, CMP, infusion of intravenous Pepcid, Benadryl, Solu-Medrol and oral acetaminophen. Differential diagnosis includes but is not limited to allergic reaction, infusion reaction 10/06/24 11:42 I interpreted the patient's laboratory data results. Based on the laboratory data results, there are no acute, emergent medical issues. Counseled pt/family regarding: lab results, diagnosis, need for follow-up Medical Desision Making - Diagnostic Testing Diagnostic test were ordered, analyzed, and reviewed by me: Yes - Risk of complications Low Risk: Low risk of morbidity from additional dx testing or treatment - Departure Departure Disposition: Home Clinical Impression: Infusion reaction Condition: Stable Critical Care Time: No Referrals: LISBETH BURGOS NP [Primary Care Provider] - Follow up/PCP as directed Additional Instructions: Do not restart Remicade infusion until you speak with the prescribing physician. Call that physician today. Take Benadryl 25 mg orally 3 times a day for the next 4 days. Take all your prescribed medication as instructed. Prescriptions: Prednisone 10 mg [Deltasone 10 mg] 10 mg PO TID #12 tablet Famotidine 20 mg [Pepcid 20 MG] 20 mg PO DAILY #5 tablet
[2024-10-06 11:05] LABS: BASOPHIL % 0.3 % (0.1-1.2); Basophil (Absolute #) 0.02 x10^3/uL (0.01-0.08); Eosinophil % 0.3 % (0.7-5.8); Eosinophil (Absolute #) 0.02 x10^3/uL (0.04-0.36); Hematocrit 37.1 % (34.1-44.9); Hemoglobin 11.3 g/dL (11.2-15.7); IMMATURE GRAN # 0.09 x10^3u/L (0.001-0.031); IMMATURE GRAN % 1.5 % (0.001-0.429); Lymphocyte (Absolute #) 1.44 x10^3/uL (1.18-3.74); Lymphocytes % 23.5 % (19.3-51.7); Mean Cell Volume 93.7 fL (79.4-94.8); Mean Corpuscular Hemoglobin 28.5 pg (25.6-32.2); Mean Corpuscular Hgb Concent. 30.5 g/dL (32.2-35.5); Mean Platelet Volume 8.4 fL (9.4-12.3); Monocyte (Absolute #) 0.15 x10^3/uL (0.24-0.86); Monocytes % 2.5 % (4.7-12.5); Neutrophil % 71.9 % (34.0-71.1); Platelet Count 274 x10^3/uL (182-369); Red Blood Count 3.96 x10^6/uL (3.93-5.22); Red Cell Distribution Width 15.2 % (11.7-14.4); White Blood Count 6.1 x10^3/uL (3.98-10.04)
[2024-10-06] MEDS ORDERED: Pepcid 20 MG VIAL IV ONE (11:06)
[2024-10-06] MEDS ORDERED: Zofran 4 MG/2 ML VIAL ONE (11:06)
[2024-10-06] MEDS ORDERED: TYLENOL 325 MG ONE (11:06)
[2024-10-06] MEDS ORDERED: Sterile H2O 10 ml IJ ONE (11:06)
[2024-10-06] MEDS ORDERED: BENADRYL 50 MG/ML ONE (11:06)
[2024-10-06] MEDS ORDERED: solu-MEDROL ONE (11:07)
[2024-10-06] MEDS: TYLENOL 325 MG PO STA (11:13)
[2024-10-06] MEDS: BENADRYL 50 MG/ML IV ONE (11:14)
[2024-10-06] MEDS: solu-MEDROL 125 MG, Sterile H2O 10 ml 2 ML IV ONE (11:14)
[2024-10-06] MEDS: Zofran 4 MG/2 ML VIAL IV ONE (11:14)
[2024-10-06] MEDS: Pepcid 20 MG VIAL IV ONE (11:14)
[2024-10-06 11:19] LABS: ALBUMIN 3.7 g/dL (3.5-5.0); ANION GAP 13.8 MEQ/L (5-15); BILIRUBIN,TOTAL 0.4 mg/dL (0.2-1.3); Calcium 8.6 mg/dL (8.4-10.2); Creatinine 1 0.59 mg/dL (0.52-1.04); EST GLOMERULAR FILTRATION RATE 93.9 ML/MIN; Potassium 4.3 mmol/L (3.5-5.1); Total Protein 6.6 g/dL (6.3-8.2)
[2024-10-06 11:46] VITALS: O2SAT 95
[2024-10-06 11:47] VITALS: BP 115/67; PULSE 81; RESP 15
== END 2024-10-06 11:56 | disposition home or self-care (01) ==
LOC: ED 10:08
DX: T80.69XA Other serum reaction due to other serum, initial encounter (principal); R50.9 Fever, unspecified; R06.02 Shortness of breath; R23.2 Flushing; E11.9 Type 2 diabetes mellitus without complications; E78.5 Hyperlipidemia, unspecified; Z79.01 Long term (current) use of anticoagulants; Z79.84 Long term (current) use of oral hypoglycemic drugs; Z79.4 Long term (current) use of insulin; Z79.891 Long term (current) use of opiate analgesic; Z79.52 Long term (current) use of systemic steroids; Z79.899 Other long term (current) drug therapy
CPT/HCPCS: 36415; 80053; 85025; 94760; 96374; 96375; 99284; J1200; J2405; J2919; A9270-GY